=== PATIENT | female | born 1950 | race American Indian/Alaskan Native ===

== ENCOUNTER 2021-10-15 23:28 | Inpatient (IN) | payer MEDICARE ==
[2021-10-15] MEDS ORDERED: dexAMETHasone 4 MG/ML VIAL IV NR (23:31)
--- NOTE | 2021-10-15 23:47 | XRay Report ---
CHEST 1 VIEW 10/15/2021 11:31 PM INDICATION / CLINICAL INFORMATION: Dyspnea. COMPARISON: None available. FINDINGS: SUPPORT DEVICES: None. HEART / MEDIASTINUM: The heart size is mildly enlarged with a left ventricular configuration. There i s prominence of the central pulmonary vessels. LUNGS / PLEURA: Interstitial lung markings are mildly increased, especially in the perihilar regions. There are a few En B lines in the left lower lung laterally. There is mild to moderate pleuropar enchymal disease in the right lower hemithorax with obscuration of the hemidiaphragm. No pneumothorax . ADDITIONAL FINDINGS: No significant additional findings. IMPRESSION: 1. Probable mild pulmonary vascular congestion/interstitial edema. 2. Mild/moderate confluent pleuroparenchymal opacity in the right lower hemithorax may be related to asymmetric edema, pneumonia or aspiration. Signer Name: Perfecto Wright MD Signed: 10/15/2021 11:43 PM Workstation Name: [id number]
[2021-10-16 00:02] LABS: Basophils # (Auto) 0.1 K/mm3 (0.0-0.1); Basophils % (Auto) 0.6 % (0.0-1.8); Eosinophils % (Auto) 0.1 % (0.0-4.3); Hematocrit 38.5 % (30.3-42.9); Hemoglobin 12.2 gm/dl (10.1-14.3); Lymphocytes # (Auto) 0.6 K/mm3 (1.2-5.4); Lymphocytes % (Auto) 4.6 % (13.4-35.0); Mean Corpuscular HGB Conc 32 % (30-34); Mean Corpuscular Volume 99 fl (79-97); Monocytes # (Auto) 1.2 K/mm3 (0.0-0.8); Monocytes % (Auto) 8.3 % (0.0-7.3); Platelet Count 254 K/mm3 (140-440); Red Blood Count 3.88 M/mm3 (3.65-5.03); Red Cell Distribution Width 15.4 % (13.2-15.2)
[2021-10-16 00:12] LABS: INR 1.05 (0.87-1.13)
[2021-10-16 00:13] LABS: ABG Base Excess -4.4 mmol/L (-2.0-3.0); ABG HCO3 22.4 mmol/L (20.0-26.0); ABG Methemoglobin 0.5 % (0.0-1.5); ABG PCO2 48.3 mm Hg; ABG PH 7.285 pH Units (7.350-7.450); ABG PO2 89.9 mm Hg (80.0-90.0)
[2021-10-16 00:25] LABS: Albumin 4.3 g/dL (3.9-5)
--- NOTE | 2021-10-16 01:16 | Emergency Department Report ---
ED Shortness of Breath HPI - General Chief Complaint: Dyspnea/Respdistress Stated Complaint: MELQUIADES Time Seen by Provider: 10/15/21 23:29 Source: EMS Mode of arrival: Stretcher Limitations: No Limitations - History of Present Illness Initial Comments: pt was brought in by EMS for SOB , history of COPD and HTN , recently diagnosed with Covid , fully vaccinated no fever , no chest pain , EMS found her with o2 sat in 60s , put her on face mask and her o2 here was 85 , Complaint: shortness of breath -: Gradual, days(s) Improves With: oxygen Worsens With: lying flat, exertion Known History Of: COPD - Related Data Home Oxygen Therapy: No ED Review of Systems ROS: Stated complaint: MELQUIADES Other details as noted in HPI Constitutional: denies: chills, fever Eyes: denies: eye pain, eye discharge, vision change ENT: denies: ear pain, throat pain Respiratory: denies: cough, shortness of breath, wheezing Cardiovascular: denies: chest pain, palpitations Endocrine: no symptoms reported Gastrointestinal: denies: abdominal pain, nausea, diarrhea Genitourinary: denies: urgency, dysuria, discharge Musculoskeletal: denies: back pain, joint swelling, arthralgia Skin: denies: rash, lesions Neurological: denies: headache, weakness, paresthesias Psychiatric: denies: anxiety, depression Hematological/Lymphatic: denies: easy bleeding, easy bruising ED Past Medical Hx - Past Medical History Previous Medical History?: Yes Hx Hypertension: Yes Hx COPD: Yes - Surgical History Past Surgical History?: No ED Physical Exam - General Limitations: No Limitations General appearance: alert, in distress - Head Head exam: Present: atraumatic, normocephalic - Eye Eye exam: Present: normal appearance - ENT ENT exam: Present: mucous membranes moist - Neck Neck exam: Present: normal inspection - Respiratory Respiratory exam: Present: wheezes, rales, decreased breath sounds. Absent: respiratory distress - Cardiovascular Cardiovascular Exam: Present: regular rate, normal rhythm. Absent: systolic murmur, diastolic murmur, rubs, gallop - GI/Abdominal GI/Abdominal exam: Present: soft, normal bowel sounds - Extremities Exam Extremities exam: Present: normal inspection - Back Exam Back exam: Present: normal inspection - Neurological Exam Neurological exam: Present: alert, oriented X3 - Psychiatric Psychiatric exam: Present: normal affect, normal mood - Skin Skin exam: Present: warm, dry, intact, normal color. Absent: rash ED Course Vital Signs 10/15/21 10/15/21 23:28 23:51 Pulse Rate 85 78 Respiratory 22 28 H Rate Blood Pressure 232/86 [Left] O2 Sat by Pulse 85 96 Oximetry - Reevaluation(s) Reevaluation #1: 10/16/21 01:13 started on bipap , duo neb given x ray shwoed possible edema lasix given , BP controlled will admit for respiratory failure and pulmonary edema ED Medical Decision Making - Lab Data Result diagrams: 10/15/21 23:43 10/15/21 23:43 - EKG Data -: EKG Interpreted by Me EKG shows normal: sinus rhythm Critical care attestation.: If time is entered above; I have spent that time in minutes in the direct care of this critically ill patient, excluding procedure time. ED Disposition Clinical Impression: SOB (shortness of breath), Respiratory failure, CHF (congestive heart failure), Pulmonary edema Disposition: ADMITTED INPATIENT Is pt being admited?: Yes Does the pt Need Aspirin: No Condition: Fair Instructions: Pulmonary Edema (ED)
[2021-10-16] MEDS: IPRATROPIUM/ALBUTEROL SULFATE 3 ML AMPUL.NEB IH NR ×2 (02:00→02:05)
[2021-10-16] MEDS: FUROSEMIDE 40 MG/4 ML INJ IV NR ×2 (02:28→06:45)
[2021-10-16] MEDS ORDERED: HYDROmorphone 1 MG/1 ML INJ IV PRN (03:40)
[2021-10-16] MEDS ORDERED: ALBUTEROL 2.5 MG/3 ML NEBU IH PRN (03:40)
[2021-10-16] MEDS ORDERED: ONDANSETRON 4 MG/2 ML INJ IV PRN (03:40)
[2021-10-16] MEDS ORDERED: MORPHINE 2 MG/1 ML INJ IV PRN (03:40)
--- NOTE | 2021-10-16 03:49 | History and Physical Report ---
History of Present Illness Date of examination: 10/16/21 Date of admission: 10/16/21 Chief complaint: Shortness of breath History of present illness: 71 years old female with history of COPD and hypertension was brought to the emergency room because of progressive shortness of breath for last 1 to 2 days. Patient was found to had O2 sat in the 60s. Patient recently diagnosed with Covid , fully vaccinated no fever , no chest pain , EMS found her with o2 sat in 60s , put her on face mask and her o2 here was 85 , In the emergency room patient WBC was 13.9, BNP was 9[address]9. Chest x-ray shows probable mild pulmonary vascular congestion/interstitial edema. Mild/moderate confluent pleural parenchymal opacity in the right lower hemithorax may be related to asymmetric edema, pneumonia or aspiration So going to admit the patient we will put the patient on antibiotic, will IV Lasix will consult in cardiology for evaluation Past History Past Medical History: COPD, hypertension Medications and Allergies Allergies Allergy/AdvReac Type Severity Reaction Status Date / Time No Known Allergies Allergy Verified 10/16/21 01:47 Review of Systems All systems: negative Cardiovascular: orthopnea, edema, shortness of breath, dyspnea on exertion Respiratory: shortness of breath, dyspnea on exertion Exam - Constitutional Vitals: Temp Pulse Resp BP Pulse Ox 64 27 H 187/73 98 10/16/21 02:26 10/16/21 02:03 10/16/21 02:26 10/16/21 02:03 General appearance: Present: mild distress - EENT Eyes: Present: PERRL ENT: hearing intact, clear oral mucosa - Neck Neck: Present: supple, normal ROM - Respiratory Respiratory effort: normal Respiratory: bilateral: rales - Cardiovascular Heart Sounds: Present: S1 & S2. Absent: rub, click - Extremities Extremities: pulses symmetrical Extremity abnormal: edema Peripheral Pulses: within normal limits - Abdominal General gastrointestinal: Present: soft, non-tender, non-distended, normal bowel sounds Female genitourinary: Present: normal - Integumentary Integumentary: Present: clear, warm, dry - Musculoskeletal Musculoskeletal: gait normal, strength equal bilaterally - Psychiatric Psychiatric: appropriate mood/affect, intact judgment & insight - Neurologic Neurologic: CNII-XII intact, moves all extremities HEART Score - HEART Score Troponin: Troponin T < 0.010 ng/mL (0.00-0.029) 10/15/21 23:43 Results - Labs CBC & Chem 7: 10/15/21 23:43 10/15/21 23:43 Labs: Laboratory Last Values WBC 13.9 K/mm3 (4.5-11.0) H 10/15/21 23:43 RBC 3.88 M/mm3 (3.65-5.03) 10/15/21 23:43 Hgb 12.2 gm/dl (10.1-14.3) 10/15/21 23:43 Hct 38.5 % (30.3-42.9) 10/15/21 23:43 MCV 99 fl (79-97) H 10/15/21 23:43 MCH 31 pg (28-32) 10/15/21 23:43 MCHC 32 % (30-34) 10/15/21 23:43 RDW 15.4 % (13.2-15.2) H 10/15/21 23:43 Plt Count 254 K/mm3 (140-440) 10/15/21 23:43 Lymph % (Auto) 4.6 % (13.4-35.0) L 10/15/21 23:43 [place] % (Auto) 8.3 % (0.0-7.3) H 10/15/21 23:43 Eos % (Auto) 0.1 % (0.0-4.3) 10/15/21 23:43 Baso % (Auto) 0.6 % (0.0-1.8) 10/15/21 23:43 Lymph # (Auto) 0.6 K/mm3 (1.2-5.4) L 10/15/21 23:43 [place] # (Auto) 1.2 K/mm3 (0.0-0.8) H 10/15/21 23:43 Eos # (Auto) 0.0 K/mm3 (0.0-0.4) 10/15/21 23:43 Baso # (Auto) 0.1 K/mm3 (0.0-0.1) 10/15/21 23:43 Seg Neutrophils % 86.4 % (40.0-70.0) H 10/15/21 23:43 Seg Neutrophils # 12.0 K/mm3 (1.8-7.7) H 10/15/21 23:43 PT 14.8 Sec. (12.2-14.9) 10/15/21 23:43 INR 1.05 (0.87-1.13) 10/15/21 23:43 ABG pH 7.285 pH Units (7.350-7.450) L 10/16/21 00:04 ABG pCO2 48.3 mm Hg 10/16/21 00:04 ABG pO2 89.9 mm Hg (80.0-90.0) 10/16/21 00:04 ABG HCO3 22.4 mmol/L (20.0-26.0) 10/16/21 00:04 ABG O2 Saturation 96.0 % (95.0-99.0) 10/16/21 00:04 ABG O2 Content 15.7 (0.0-44) 10/16/21 00:04 ABG Base Excess -4.4 mmol/L (-2.0-3.0) L 10/16/21 00:04 ABG Hemoglobin 11.8 gm/dl (12.0-16.0) L 10/16/21 00:04 ABG Carboxyhemoglobin 1.4 % (0.0-5.0) 10/16/21 00:04 ABG Methemoglobin 0.5 % (0.0-1.5) 10/16/21 00:04 Oxyhemoglobin 94.2 % (95.0-99.0) L 10/16/21 00:04 FiO2 50 % 10/16/21 00:04 Sodium 132 mmol/L (137-145) L 10/15/21 23:43 Potassium 4.8 mmol/L (3.6-5.0) 10/15/21 23:43 Chloride 97.7 mmol/L (98-107) L 10/15/21 23:43 Carbon Dioxide 21 mmol/L (22-30) L 10/15/21 23:43 Anion Gap 18 mmol/L 10/15/21 23:43 BUN 22 mg/dL (7-17) H 10/15/21 23:43 Creatinine 1.3 mg/dL (0.6-1.2) H 10/15/21 23:43 Estimated GFR 40 ml/min 10/15/21 23:43 BUN/Creatinine Ratio 17 % 10/15/21 23:43 Glucose 151 mg/dL (65-100) H 10/15/21 23:43 Calcium 9.0 mg/dL (8.4-10.2) 10/15/21 23:43 Total Bilirubin 0.40 mg/dL (0.1-1.2) 10/15/21 23:43 AST 20 units/L (5-40) 10/15/21 23:43 ALT 28 units/L (7-56) 10/15/21 23:43 Alkaline Phosphatase 80 units/L (35-129) 10/15/21 23:43 Troponin T < 0.010 ng/mL (0.00-0.029) 10/15/21 23:43 NT-Pro-B Natriuret Pep 37242 pg/mL (0-900) H 10/15/21 23:43 Total Protein 7.0 g/dL (6.3-8.2) 10/15/21 23:43 Albumin 4.3 g/dL (3.9-5) 10/15/21 23:43 Albumin/Globulin Ratio 1.6 % 10/15/21 23:43 Lipase 18 units/L (13-60) 10/15/21 23:43 - Imaging and Cardiology Chest x-ray: report reviewed Assessment and Plan VTE prophylaxis?: Chemical Plan of care discussed with patient/family: Yes - Patient Problems (1) Acute congestive heart failure Current Visit: Yes Status: Acute Plan to address problem: Admit the patient to the [facility] overnight. Cardiac diet. Patient is on BiPAP. DuoNeb by nebulizer every 4 hours. Lasix 40 mg IV every 12 hours. Echocardiogram. Cardiology evaluation. Fluid restriction. Maintain input output. Daily weight (2) Acute respiratory failure Current Visit: Yes Status: Acute Plan to address problem: Cardiac diet. Patient is on BiPAP. DuoNeb by nebulizer every 4 hours. Consult pulmonary if needed (3) COPD (chronic obstructive pulmonary disease) Current Visit: Yes Status: Acute Plan to address problem: Patient is on BiPAP. DuoNeb by nebulizer every 4 hours . Albuterol via nebulizer every 4 hours as needed. We continue the home medication (4) Hypertension Current Visit: Yes Status: Acute Plan to address problem: Hydralazine 10 mg IV every 6 hours as needed. We will continue the home medication. We will monitor the patient closely (5) SOB (shortness of breath) Current Visit: Yes Status: Acute Plan to address problem: Patient is on BiPAP. DuoNeb by nebulizer every 4 hours . Albuterol via nebulizer every 4 hours as needed. We continue the home medication (6) Pneumonia Current Visit: Yes Status: Acute Plan to address problem: Patient is on BiPAP. Oxygen via nasal cannula 3 L/min. Levaquin 750 mg p.o. daily. We do the blood culture sputum culture. Patient is fully vaccinated against Covid. Follow-up Covid inflammatory marker (7) DVT prophylaxis Current Visit: Yes Status: Acute Plan to address problem: Heparin 5000 units subcu every 12 hours for DVT prophylaxis. Pepcid 20 mg p.o. twice daily for GI prophylaxis. Patient is a full code
[2021-10-16] MEDS: FUROSEMIDE 40 MG/4 ML INJ IV SCH ×2 (07:20→22:34)
--- NOTE | 2021-10-16 07:58 | Progress Note ---
Assessment and Plan Assessment and plan: History of present illness: 71 years old female with history of COPD and hypertension was brought to the emergency room because of progressive shortness of breath for last 1 to 2 days. Patient was found to had O2 sat in the 60s. Patient recently diagnosed with Covid , fully vaccinated no fever , no chest pain , EMS found her with o2 sat in 60s , put her on face mask and her o2 here was 85 , In the emergency room patient WBC was 13.9, [place] [address]36. Chest x-ray shows probable mild pulmonary vascular congestion/interstitial edema. Mild/moderate confluent pleural parenchymal opacity in the right lower hemithorax may be related to asymmetric edema, pneumonia or aspiration So going to admit the patient we will put the patient on antibiotic, will IV Lasix will consult in cardiology for evaluation Hospital Course: 10/16/2021: Remains on BIPAP mask. Lower extremity edema and rales noted on exam. Will continue diuresis. ECHO findings noted as well as cardio recs. Pulmonology consulted for assistance with BIPAP. Discussed with patient who would like to remain full code. She requested I not update family about medical status when I asked who I could call. Assessment and Plan: #Acute Hypoxic respiratory failure - etiology likely decompensated heart failure - currently on BIPAP, abg shows respiratory acidosis. - will attempt to wean as sats tolerate. - pulmonology consulted. #Acute Decompensated heart failure - concern for decompensated heart failure given lower extremity edema and interstitial - BNP 40796 - CXR shows pulmonary edema - ECHO fdinings as below - cardiology consulted - Lasix 40 mg IV bid. #HFrEF - 40-45% on echo - mild concentric hypertrophey - diuresis as above - will need GDMT optimization #Sepsis POA - wbc: 13K - CXR shows patchy infiltrate RLL field - COVID pcr sent' - bcx, scx - abx: levaquin #Right lower lobe Pneumonia - patchy opacity in RLL field, could represent PNA. - RT PCR sent for COVID - Bcx, scx - currently on levaquin # Acute kidney injury vs Chronic Kidney disease - Cr: 1.3, baseline unclear no reported hx - will trend on bmp - renally adjust meds #Essential hypertension - reports being on 4 Anti-HTN meds - will need medication reconciliation - Labetalol 10 mg IV q4hr prn #Advance care planning Disease education conducted, care plan discussed, diagnoses discussed, prognosis discussed, patient is full code, patient acknowledges understanding and agree with care plan, +30 minutes. The high probability of a clinically significant, sudden or life threatening deterioration of the [pulmonary, cardiac] system(s) required my full and direct attention, intervention and personal management. The aggregate critical care time was [60] minutes. This time is in addition to time spent performing reported procedures but includes the following: [x] Data Review and interpretation [x] Patient assessment and monitoring of vital signs [x] Documentation [x] Medication orders and management History Interval history: Resting comfortably. BIPAP in place on my encounter. Patient states that her breathing has improved. She states that her granddaughter recently tested positi ve for covid. Patient has only recieved two doses of the moderna vaccine. Her only medical problem is hypertension for which she states she takes four medications but could not recall them. D/w with [facility] R[facility] who will call to verify meds. I discussed advanced directives with the patient should the patient worsen she states that she would like to remain a full code. Hospitalist Physical - Physical exam Narrative exam: Physical Exam: VITAL SIGNS: Reviewed. GENERAL: The patient appears normally developed, Vital signs as documented. elderly woman appears stated age. on bipap mask HEAD: No signs of head trauma. EYES: Pupils are equal. Extraocular motions intact. EARS: Hearing grossly intact. MOUTH: Oropharynx is normal. NECK: No adenopathy, no JVD. CHEST: bilateral rales CARDIAC: Regular rate and rhythm. S1 and S2, without murmurs, gallops, or rubs. VASCULAR: bilateral 1-2+ LE edema. Peripheral pulses normal and equal in all extremities. ABDOMEN: Soft, non tender and non distended. No rebound or guarding, and no masses palpated. Bowel Sounds normal. MUSCULOSKELETAL: Good range of motion of all major joints. Extremities without clubbing, cyanosis or edema. NEUROLOGIC EXAM: Alert and oriented x 4. no focal sensory or strength deficits. PSYCHIATRIC: Mood normal. SKIN: detail exam as documented in skin assessment - Constitutional Vitals: Temp Pulse Resp BP Pulse Ox 57 L 20 137/61 100 10/16/21 06:31 10/16/21 06:31 10/16/21 06:31 10/16/21 06:31 General appearance: Present: mild distress HEART Score - HEART Score Troponin: Troponin T < 0.010 ng/mL (0.00-0.029) 10/15/21 23:43 Results - Labs CBC & Chem 7: 10/15/21 23:43 10/15/21 23:43 Labs: Laboratory Last Values WBC 13.9 K/mm3 (4.5-11.0) H 10/15/21 23:43 RBC 3.88 M/mm3 (3.65-5.03) 10/15/21 23:43 Hgb 12.2 gm/dl (10.1-14.3) 10/15/21 23:43 Hct 38.5 % (30.3-42.9) 10/15/21 23:43 MCV 99 fl (79-97) H 10/15/21 23:43 MCH 31 pg (28-32) 10/15/21 23:43 MCHC 32 % (30-34) 10/15/21 23:43 RDW 15.4 % (13.2-15.2) H 10/15/21 23:43 Plt Count 254 K/mm3 (140-440) 10/15/21 23:43 Lymph % (Auto) 4.6 % (13.4-35.0) L 10/15/21 23:43 [place] % (Auto) 8.3 % (0.0-7.3) H 10/15/21 23:43 Eos % (Auto) 0.1 % (0.0-4.3) 10/15/21 23:43 Baso % (Auto) 0.6 % (0.0-1.8) 10/15/21 23:43 Lymph # (Auto) 0.6 K/mm3 (1.2-5.4) L 10/15/21 23:43 [place] # (Auto) 1.2 K/mm3 (0.0-0.8) H 10/15/21 23:43 Eos # (Auto) 0.0 K/mm3 (0.0-0.4) 10/15/21 23:43 Baso # (Auto) 0.1 K/mm3 (0.0-0.1) 10/15/21 23:43 Seg Neutrophils % 86.4 % (40.0-70.0) H 10/15/21 23:43 Seg Neutrophils # 12.0 K/mm3 (1.8-7.7) H 10/15/21 23:43 PT 14.8 Sec. (12.2-14.9) 10/15/21 23:43 INR 1.05 (0.87-1.13) 10/15/21 23:43 ABG pH 7.285 pH Units (7.350-7.450) L 10/16/21 00:04 ABG pCO2 48.3 mm Hg 10/16/21 00:04 ABG pO2 89.9 mm Hg (80.0-90.0) 10/16/21 00:04 ABG HCO3 22.4 mmol/L (20.0-26.0) 10/16/21 00:04 ABG O2 Saturation 96.0 % (95.0-99.0) 10/16/21 00:04 ABG O2 Content 15.7 (0.0-44) 10/16/21 00:04 ABG Base Excess -4.4 mmol/L (-2.0-3.0) L 10/16/21 00:04 ABG Hemoglobin 11.8 gm/dl (12.0-16.0) L 10/16/21 00:04 ABG Carboxyhemoglobin 1.4 % (0.0-5.0) 10/16/21 00:04 ABG Methemoglobin 0.5 % (0.0-1.5) 10/16/21 00:04 Oxyhemoglobin 94.2 % (95.0-99.0) L 10/16/21 00:04 FiO2 50 % 10/16/21 00:04 Sodium 132 mmol/L (137-145) L 10/15/21 23:43 Potassium 4.8 mmol/L (3.6-5.0) 10/15/21 23:43 Chloride 97.7 mmol/L (98-107) L 10/15/21 23:43 Carbon Dioxide 21 mmol/L (22-30) L 10/15/21 23:43 Anion Gap 18 mmol/L 10/15/21 23:43 BUN 22 mg/dL (7-17) H 10/15/21 23:43 Creatinine 1.3 mg/dL (0.6-1.2) H 10/15/21 23:43 Estimated GFR 40 ml/min 10/15/21 23:43 BUN/Creatinine Ratio 17 % 10/15/21 23:43 Glucose 151 mg/dL (65-100) H 10/15/21 23:43 Calcium 9.0 mg/dL (8.4-10.2) 10/15/21 23:43 Total Bilirubin 0.40 mg/dL (0.1-1.2) 10/15/21 23:43 AST 20 units/L (5-40) 10/15/21 23:43 ALT 28 units/L (7-56) 10/15/21 23:43 Alkaline Phosphatase 80 units/L (35-129) 10/15/21 23:43 Troponin T < 0.010 ng/mL (0.00-0.029) 10/15/21 23:43 NT-Pro-B Natriuret Pep 69939 pg/mL (0-900) H 10/15/21 23:43 Total Protein 7.0 g/dL (6.3-8.2) 10/15/21 23:43 Albumin 4.3 g/dL (3.9-5) 10/15/21 23:43 Albumin/Globulin Ratio 1.6 % 10/15/21 23:43 Lipase 18 units/L (13-60) 10/15/21 23:43 Active Medications - Current Medications Current Medications: Generic Name Dose Route Start Last Admin Trade Name Freq PRN Reason Stop Dose Admin Acetaminophen 650 mg 10/16/21 03:40 Acetaminophen 325 Mg Tab PO Q4H PRN Pain MILD(1-3)/Fever >100.5/PEREZ Albuterol 2.5 mg 10/16/21 03:40 Albuterol 2.5 Mg/3 Ml Nebu IH Q3HRT PRN Shortness Of Breath Albuterol/Ipratropium 1 ampul 10/16/21 08:00 Ipratropium/Albuterol Sulfate 3 Ml Ampul.Neb IH Q6HRT ANA Famotidine 10 mg 10/16/21 10:00 Famotidine 10 Mg Tab PO BID ANA Furosemide 40 mg 10/16/21 06:00 10/16/21 07:20 Furosemide 40 Mg/4 Ml Inj IV 40 mg BID@0600,1800 ANA Administration Heparin Sodium (Porcine) 5,000 unit 10/16/21 10:00 Heparin 5,000 Unit/1 Ml Vial SUB-Q Q12HR [facility] Hydromorphone HCl 0.5 mg 10/16/21 03:40 Hydromorphone 1 Mg/1 Ml Inj IV Q3H PRN Pain , Severe (7-10) Levofloxacin 750 mg 10/16/21 10:00 Levofloxacin 750 Mg Tab PO Q48HR [facility] Protocol Morphine Sulfate 2 mg 10/16/21 03:40 Morphine 2 Mg/1 Ml Inj IV Q4H PRN Pain, Moderate (4-6) Ondansetron HCl 4 mg 10/16/21 03:40 Ondansetron 4 Mg/2 Ml Inj IV Q8H PRN Nausea And Vomiting Sodium Chloride 10 ml 10/16/21 10:00 Sodium Chloride 0.9% 10 Ml Flush Syringe IV BID [facility] Sodium Chloride 10 ml 10/16/21 03:40 Sodium Chloride 0.9% 10 Ml Flush Syringe IV PRN PRN LINE FLUSH
[2021-10-16] MEDS: levoFLOXacin 750 MG TAB PO SCH (09:55)
[2021-10-16] MEDS: FAMOTIDINE 10 MG TAB PO SCH ×2 (09:55→22:34)
[2021-10-16] MEDS: HEPARIN 5,000 UNIT/1 ML VIAL SUB-Q SCH ×2 (09:55→22:34)
[2021-10-16] MEDS ORDERED: levoFLOXacin 750 MG TAB PO SCH (10:00)
[2021-10-16] MEDS ORDERED: FAMOTIDINE 20 MG TAB PO SCH (10:00)
[2021-10-16 10:38] LABS: Bilirubin,Urine NEG (Negative); Blood,Urine NEG (Negative); Color,Urine Straw (Yellow); Protein,Urine <15 mg/dL mg/dL (Negative); RBC,Urine < 1.0 /HPF (0.0-6.0); Urobilinogen,Urine < 2.0 mg/dL (<2.0)
--- NOTE | 2021-10-16 11:47 | Consultation ---
History of Present Illness Consult date: 10/16/21 Consult reason: congestive heart failure History of present illness: 71-year-old female presenting with shortness of breath. Denies any chest pain or prior history of heart disease she is currently being worked up for COVID-19 infection. Past History Past Medical History: COPD, hypertension Past Surgical History: denies: No surgical history Social history: denies: no significant social history Medications and Allergies Allergies Allergy/AdvReac Type Severity Reaction Status Date / Time No Known Allergies Allergy Verified 10/16/21 01:47 Home Medications Medication Instructions Recorded Confirmed Last Taken Type Albuterol Sulfate [Proventil Hfa] 6.7 gm IH Q4H PRN 10/16/21 10/16/21 10/16/21 10:09 History Hydralazine HCl 50 mg PO BID 10/16/21 10/16/21 10/15/21 09:00 History NIFEdipine [Nifedipine ER] 90 mg PO QDAY 10/16/21 10/16/21 10/15/21 09:00 History atenoloL [Tenormin] 50 mg PO BID 10/16/21 10/16/21 10/15/21 09:00 History lisinopriL [Zestril TAB] 40 mg PO QDAY 10/16/21 10/16/21 10/15/21 09:00 History Active Meds: Active Medications Acetaminophen (Acetaminophen 325 Mg Tab) 650 mg PO Q4H PRN PRN Reason: Pain MILD(1-3)/Fever >100.5/PEREZ Albuterol (Albuterol 2.5 Mg/3 Ml Nebu) 2.5 mg IH Q3HRT PRN PRN Reason: Shortness Of Breath Albuterol/Ipratropium (Ipratropium/Albuterol Sulfate 3 Ml Ampul.Neb) 1 ampul IH Q6HRT ANA Famotidine (Famotidine 10 Mg Tab) 10 mg PO BID ANA Furosemide (Furosemide 40 Mg/4 Ml Inj) 40 mg IV BID@0600,1800 [facility] Last Admin: 10/16/21 07:20 Dose: 40 mg Heparin Sodium (Porcine) (Heparin 5,000 Unit/1 Ml Vial) 5,000 unit SUB-Q Q12HR [facility] Last Admin: 10/16/21 09:55 Dose: 5,000 unit Hydromorphone HCl (Hydromorphone 1 Mg/1 Ml Inj) 0.5 mg IV Q3H PRN PRN Reason: Pain , Severe (7-10) Levofloxacin (Levofloxacin 750 Mg Tab) 750 mg PO Q48HR [facility]; Protocol Last Admin: 10/16/21 09:55 Dose: 750 mg Morphine Sulfate (Morphine 2 Mg/1 Ml Inj) 2 mg IV Q4H PRN PRN Reason: Pain, Moderate (4-6) Ondansetron HCl (Ondansetron 4 Mg/2 Ml Inj) 4 mg IV Q8H PRN PRN Reason: Nausea And Vomiting Sodium Chloride (Sodium Chloride 0.9% 10 Ml Flush Syringe) 10 ml IV BID [facility] Sodium Chloride (Sodium Chloride 0.9% 10 Ml Flush Syringe) 10 ml IV PRN PRN PRN Reason: LINE FLUSH Review of Systems Constitutional: fever, sweats, fatigue, no weight loss, no weight gain Ears, nose, mouth and throat: no deferred, no ear pain, no ear discharge, no tinnitis Cardiovascular: no chest pain, no orthopnea, no palpitations, no rapid/irregular heart beat, no edema, no syncope Respiratory: shortness of breath, dyspnea on exertion Gastrointestinal: no abdominal pain, no nausea, no vomiting, no diarrhea Genitourinary Female: no pelvic pain, no flank pain, no menorrhagia, no dysuria Musculoskeletal: no neck stiffness, no neck pain, no low back pain, no shooting leg pain Integumentary: no rash, no pruritis, no redness, no sores Neurological: no head injury, no transient paralysis, no weakness, no parathesias, no numbness Psychiatric: no anxiety, no memory loss, no sleep disturbances Endocrine: no cold intolerance, no heat intolerance, no polyphagia, no polydipsia, no polyuria, no nocturia Hematologic/Lymphatic: no easy bruising, no easy bleeding Allergic/Immunologic: no urticaria, no allergic rhinitis, no wheezing Physical Examination Vital Signs Pulse Resp BP Pulse Ox 85 22 232/86 85 10/15/21 23:28 10/15/21 23:28 10/15/21 23:28 10/15/21 23:28 HEENT: Positive: PERRL, Normocephaly, Mucus Membranes Moist Neck: Positive: neck supple, trachea midline Cardiac: Positive: Reg Rate and Rhythm, S1/S2. Negative: Audible Murmur Lungs: Positive: Rhonchi. Negative: Rales, Wheezes Neuro: Positive: Grossly Intact Abdomen: Positive: Unremarkable, Soft Extremities: Absent: edema Results 10/15/21 23:43 10/15/21 23:43 Cardiac Enzymes 10/15/21 Range/Units 23:43 AST 20 (5-40) units/L Coagulation 10/15/21 Range/Units 23:43 PT 14.8 (12.2-14.9) Sec. INR 1.05 (0.87-1.13) CBC 10/15/21 Range/Units 23:43 WBC 13.9 H (4.5-11.0) K/mm3 RBC 3.88 (3.65-5.03) M/mm3 Hgb 12.2 (10.1-14.3) gm/dl Hct 38.5 (30.3-42.9) % Plt Count 254 (140-440) K/mm3 Lymph # (Auto) 0.6 L (1.2-5.4) K/mm3 [place] # (Auto) 1.2 H (0.0-0.8) K/mm3 Eos # (Auto) 0.0 (0.0-0.4) K/mm3 Baso # (Auto) 0.1 (0.0-0.1) K/mm3 Comprehensive Metabolic Panel 10/15/21 Range/Units 23:43 Sodium 132 L (137-145) mmol/L Potassium 4.8 (3.6-5.0) mmol/L Chloride 97.7 L (98-107) mmol/L Carbon Dioxide 21 L (22-30) mmol/L BUN 22 H (7-17) mg/dL Creatinine 1.3 H (0.6-1.2) mg/dL Glucose 151 H (65-100) mg/dL Calcium 9.0 (8.4-10.2) mg/dL AST 20 (5-40) units/L ALT 28 (7-56) units/L Alkaline Phosphatase 80 (35-129) units/L Total Protein 7.0 (6.3-8.2) g/dL Albumin 4.3 (3.9-5) g/dL EKG interpretations - Telemetry EKG Rhythm: Sinus Rhythm Assessment and Plan 1. Shortness of breath and dyspnea with acute arterial desaturation rule out Covid 19 infection 2. Chronic obstructive pulmonary disease 3. Essential hypertension 4. Abnormal chest x-ray showing small to moderate size right pleural effusion. 5. Renal insufficiency Plan. Patient is currently stable BNP is significantly elevated we will obtain echocardiogram to assess left ventricular size as well as right ventricular size and function. Continue present management
[2021-10-16] MEDS: IPRATROPIUM/ALBUTEROL SULFATE 3 ML AMPUL.NEB IH SCH ×2 (19:12→19:13)
[2021-10-16] MEDS ORDERED: ALBUTEROL 8.5 GM MDI INHALATION IH PRN (20:35)
--- NOTE | 2021-10-16 23:11 | Consultation ---
History of Present Illness Consult date: 10/16/21 Requesting physician: GERBER ROMERO Reason for consult: hypoxemia, other (Continuous bipap) History of present illness: 71 y/o female with COPD, admitted with acute respiratory failure. Found to have BNP of >23K. CXR shows pulmonary edema and right sided pleural effusion. Echo shows an EF of 45% with mild Pulmonary HTN. Patient was in significant respiratory distress so required bipap but has now been weaned to 3 liters NC with good sats. pulmonary consulted for help with bipap weaning. Past History Past Medical History: COPD, hypertension Past Surgical History: denies: No surgical history Social history: denies: no significant social history Medications and Allergies Allergies Allergy/AdvReac Type Severity Reaction Status Date / Time No Known Allergies Allergy Verified 10/16/21 01:47 Home Medications Medication Instructions Recorded Confirmed Last Taken Type Albuterol Sulfate [Proventil Hfa] 6.7 gm IH Q4H PRN 10/16/21 10/16/21 10/16/21 10:09 History Hydralazine HCl 50 mg PO BID 10/16/21 10/16/21 10/15/21 09:00 History NIFEdipine [Nifedipine ER] 90 mg PO QDAY 10/16/21 10/16/21 10/15/21 09:00 History atenoloL [Tenormin] 50 mg PO BID 10/16/21 10/16/21 10/15/21 09:00 History lisinopriL [Zestril TAB] 40 mg PO QDAY 10/16/21 10/16/21 10/15/21 09:00 History Active Meds: Active Medications Acetaminophen (Acetaminophen 325 Mg Tab) 650 mg PO Q4H PRN PRN Reason: Pain MILD(1-3)/Fever >100.5/PEREZ Albuterol (Albuterol 8.5 Gm Mdi Inhalation) 2 puff IH Q6HRT [facility] Famotidine (Famotidine 10 Mg Tab) 10 mg PO BID [facility] Last Admin: 10/16/21 22:34 Dose: 10 mg Furosemide (Furosemide 40 Mg/4 Ml Inj) 40 mg IV BID@0600,1800 [facility] Last Admin: 10/16/21 22:34 Dose: 40 mg Heparin Sodium (Porcine) (Heparin 5,000 Unit/1 Ml Vial) 5,000 unit SUB-Q Q12HR ANA Last Admin: 10/16/21 22:34 Dose: 5,000 unit Hydromorphone HCl (Hydromorphone 1 Mg/1 Ml Inj) 0.5 mg IV Q3H PRN PRN Reason: Pain , Severe (7-10) Levofloxacin (Levofloxacin 750 Mg Tab) 750 mg PO Q48HR [facility]; Protocol Last Admin: 10/16/21 09:55 Dose: 750 mg Morphine Sulfate (Morphine 2 Mg/1 Ml Inj) 2 mg IV Q4H PRN PRN Reason: Pain, Moderate (4-6) Ondansetron HCl (Ondansetron 4 Mg/2 Ml Inj) 4 mg IV Q8H PRN PRN Reason: Nausea And Vomiting Sodium Chloride (Sodium Chloride 0.9% 10 Ml Flush Syringe) 10 ml IV BID ANA Sodium Chloride (Sodium Chloride 0.9% 10 Ml Flush Syringe) 10 ml IV PRN PRN PRN Reason: LINE FLUSH Review of Systems All systems: negative Physical Examination Vital signs: Vital Signs Pulse Resp BP Pulse Ox 85 22 232/86 85 10/15/21 23:28 10/15/21 23:28 10/15/21 23:28 10/15/21 23:28 General appearance: no acute distress, asleep Eyes: non-icteric Neck: supple Ascultation: Bilateral: rales (right greater than left) Tactile fremitus: Right: diminished (base) Cardiovascular: regular rate and rhythm Results - Laboratory Findings CBC and BMP: 10/15/21 23:43 10/15/21 23:43 ABG ABG pH 7.285 pH Units (7.350-7.450) L 10/16/21 00:04 ABG pCO2 48.3 mm Hg 10/16/21 00:04 ABG pO2 89.9 mm Hg (80.0-90.0) 10/16/21 00:04 ABG O2 Saturation 96.0 % (95.0-99.0) 10/16/21 00:04 PT/INR, D-dimer PT 14.8 Sec. (12.2-14.9) 10/15/21 23:43 INR 1.05 (0.87-1.13) 10/15/21 23:43 Abnormal lab findings: Abnormal Labs 10/15/21 10/15/21 10/15/21 23:43 23:43 23:43 WBC 13.9 H MCV 99 H RDW 15.4 H Lymph % (Auto) 4.6 L [place] % (Auto) 8.3 H Lymph # (Auto) 0.6 L [place] # (Auto) 1.2 H Seg Neutrophils % 86.4 H Seg Neutrophils # 12.0 H ABG pH ABG Base Excess ABG Hemoglobin Oxyhemoglobin Sodium 132 L Chloride 97.7 L Carbon Dioxide 21 L BUN 22 H Creatinine 1.3 H Glucose 151 H NT-Pro-B Natriuret Pep 37437 H 10/16/21 00:04 WBC MCV RDW Lymph % (Auto) [place] % (Auto) Lymph # (Auto) [place] # (Auto) Seg Neutrophils % Seg Neutrophils # ABG pH 7.285 L ABG Base Excess -4.4 L ABG Hemoglobin 11.8 L Oxyhemoglobin 94.2 L Sodium Chloride Carbon Dioxide BUN Creatinine Glucose NT-Pro-B Natriuret Pep - Diagnostic Findings Chest x-ray: image reviewed Assessment and Plan 71 y/o female with acute respiratory failure secondary to volume overload from CHF exacerbation. 1. Weaned from bipap 2. should be assessed for central sleep apnea as an outpatient given systolic heart failure 3. Agree with no systemic steroids at present 4 Wean oxygen for sats >88% 5. Likely will need ambulatory pulse ox prior to discharge 6. Thank you for the consult, will continue to follow along with you.
[2021-10-17] MEDS: ACETAMINOPHEN 325 MG TAB PO PRN ×2 (00:41→15:05)
[2021-10-17] MEDS: hydrALAZINE 20 MG/1 ML INJ IV PRN ×2 (03:07→19:56)
--- NOTE | 2021-10-17 05:49 | XRay Report ---
CHEST 1 VIEW 10/17/2021 5:10 AM INDICATION / CLINICAL INFORMATION: COVID 19 pneumonia. COMPARISON: 10/15/21. FINDINGS: SUPPORT DEVICES: None. HEART / MEDIASTINUM: Mild cardiomegaly is stable. Pulmonary vascular congestion has improved. LUNGS / PLEURA: Interstitial edema has improved. Pleuroparenchymal opacity in the right lower hemitho rax also appears slightly less prominent. No pneumothorax. ADDITIONAL FINDINGS: No significant additional findings. IMPRESSION: Improving interstitial edema and right basilar pleuroparenchymal opacity. Signer Name: Perfecto Wright MD Signed: 10/17/2021 5:45 AM Workstation Name: [id number]
[2021-10-17] MEDS: FUROSEMIDE 40 MG/4 ML INJ IV SCH ×2 (06:22→18:02)
--- NOTE | 2021-10-17 08:14 | Progress Note ---
Assessment and Plan Assessment and plan: History of present illness: 71 years old female with history of COPD and hypertension was brought to the emergency room because of progressive shortness of breath for last 1 to 2 days. Patient was found to had O2 sat in the 60s. Patient recently diagnosed with Covid , fully vaccinated no fever , no chest pain , EMS found her with o2 sat in 60s , put her on face mask and her o2 here was 85 , In the emergency room patient WBC was 13.9, BNP [place] [address]. Chest x-ray shows probable mild pulmonary vascular congestion/interstitial edema. Mild/moderate confluent pleural parenchymal opacity in the right lower hemithorax may be related to asymmetric edema, pneumonia or aspiration So going to admit the patient we will put the patient on antibiotic, will IV Lasix will consult in cardiology for evaluation Hospital Course: 10/16/2021: Remains on BIPAP mask. Lower extremity edema and rales noted on exam. Will continue diuresis. ECHO findings noted as well as cardio recs. Pulmonology consulted for assistance with BIPAP. Discussed with patient who would like to remain full code. She requested I not update family about medical status when I asked who I could call. 10/17/2021: improvement clinically. On Nasal cannula 4L satting 94-95% on my encounter. CXR shows improvement in interstitial edeam. Urine output good. Slight inc in Cr but will continue diuresis one more day and can likely drop lasix dose tomorrow. Assessment and Plan: #Acute Hypoxic respiratory failure (improving) - etiology likely decompensated heart failure - currently on BIPAP, abg shows respiratory acidosis. - de-escalated to NC. - will attempt to wean as sats tolerate. - pulmonology consulted. #Acute Decompensated heart failure - concern for decompensated heart failure given lower extremity edema and interstitial - BNP 75520 - CXR shows pulmonary edema - ECHO fdinings as below - cardiology consulted - Lasix 40 mg IV bid. #HFrEF - 40-45% on echo - mild concentric hypertrophey - diuresis as above - on atenolol at home, will change to metoprolol. hold naida due to renal fx. #Sepsis POA - wbc: 13K - CXR shows patchy infiltrate RLL field - COVID pcr sent' - bcx, scx - abx: levaquin #Right lower lobe Pneumonia - patchy opacity in RLL field, could represent PNA. - RT PCR sent for COVID - Bcx, scx - currently on levaquin # Acute kidney injury due to vasomotor nephropathy - Cr: 1.3-->1.4 - will trend on bmp - renally adjust meds #Essential hypertension - reports being on 4 Anti-HTN meds - resume home hydralazine. hold lisinopril. - will change atenolol to metoprolol. - will need medication reconciliation - Labetalol 10 mg IV q4hr prn #Advance care planning Disease education conducted, care plan discussed, diagnoses discussed, prognosis discussed, patient is full code, patient acknowledges understanding and agree wi th care plan, +30 minutes. The high probability of a clinically significant, sudden or life threatening deterioration of the [pulmonary, cardiac] system(s) required my full and direct attention, intervention and personal management. The aggregate critical care time was [60] minutes. This time is in addition to time spent performing reported procedures but includes the following: [x] Data Review and interpretation [x] Patient assessment and monitoring of vital signs [x] Documentation [x] Medication orders and management History Interval history: Still undecided about code status as she brought this up in my conversation today. Does not want to commit so will remain full code. Has asked me to not notify family and that she will communicate with family. RN notified of my conversation. States that she is feeling better but has a poor appetitie. Frustrated her blood pressure is elevated but I explained to her we will resume her home meds and possibly initiated on new antihypertensives. Hospitalist Physical - Physical exam Narrative exam: Physical Exam: VITAL SIGNS: Reviewed. GENERAL: The patient appears normally developed, Vital signs as documented. elderly woman appears stated age. on nasal cannula HEAD: No signs of head trauma. EYES: Pupils are equal. Extraocular motions intact. EARS: Hearing grossly intact. MOUTH: Oropharynx is normal. NECK: No adenopathy, no JVD. CHEST: bilateral rales CARDIAC: Regular rate and rhythm. S1 and S2, without murmurs, gallops, or rubs. VASCULAR: bilateral 1-2+ LE edema. Peripheral pulses normal and equal in all extremities. ABDOMEN: Soft, non tender and non distended. No rebound or guarding, and no masses palpated. Bowel Sounds normal. MUSCULOSKELETAL: Good range of motion of all major joints. Extremities without clubbing, cyanosis or edema. NEUROLOGIC EXAM: Alert and oriented x 4. no focal sensory or strength deficits. PSYCHIATRIC: Mood normal. SKIN: detail exam as documented in skin assessment - Constitutional Vitals: Temp Pulse Resp BP Pulse Ox 97.9 F 61 22 181/85 97 10/17/21 08:00 10/17/21 04:00 10/17/21 04:00 10/17/21 03:07 10/17/21 07:45 General appearance: Present: mild distress HEART Score - HEART Score Troponin: Troponin T < 0.010 ng/mL (0.00-0.029) 10/15/21 23:43 Results - Labs CBC & Chem 7: 10/17/21 07:29 10/17/21 07:29 Labs: Laboratory Last Values WBC 13.9 K/mm3 (4.5-11.0) H 10/15/21 23:43 RBC 3.88 M/mm3 (3.65-5.03) 10/15/21 23:43 Hgb 12.2 gm/dl (10.1-14.3) 10/15/21 23:43 Hct 38.5 % (30.3-42.9) 10/15/21 23:43 MCV 99 fl (79-97) H 10/15/21 23:43 MCH 31 pg (28-32) 10/15/21 23:43 MCHC 32 % (30-34) 10/15/21 23:43 RDW 15.4 % (13.2-15.2) H 10/15/21 23:43 Plt Count 254 K/mm3 (140-440) 10/15/21 23:43 Lymph % (Auto) 4.6 % (13.4-35.0) L 10/15/21 23:43 [place] % (Auto) 8.3 % (0.0-7.3) H 10/15/21 23:43 Eos % (Auto) 0.1 % (0.0-4.3) 10/15/21 23:43 Baso % (Auto) 0.6 % (0.0-1.8) 10/15/21 23:43 Lymph # (Auto) 0.6 K/mm3 (1.2-5.4) L 10/15/21 23:43 [place] # (Auto) 1.2 K/mm3 (0.0-0.8) H 10/15/21 23:43 Eos # (Auto) 0.0 K/mm3 (0.0-0.4) 10/15/21 23:43 Baso # (Auto) 0.1 K/mm3 (0.0-0.1) 10/15/21 23:43 Seg Neutrophils % 86.4 % (40.0-70.0) H 10/15/21 23:43 Seg Neutrophils # 12.0 K/mm3 (1.8-7.7) H 10/15/21 23:43 PT 14.8 Sec. (12.2-14.9) 10/15/21 23:43 INR 1.05 (0.87-1.13) 10/15/21:43 ABG pH 7.285 pH Units (7.350-7.450) L 10/16/21 00:04 ABG pCO2 48.3 mm Hg 10/16/21 00:04 ABG pO2 89.9 mm Hg (80.0-90.0) 10/16/21 00:04 ABG HCO3 22.4 mmol/L (20.0-26.0) 10/16/21 00:04 ABG O2 Saturation 96.0 % (95.0-99.0) 10/16/21 00:04 ABG O2 Content 15.7 (0.0-44) 10/16/21 00:04 ABG Base Excess -4.4 mmol/L (-2.0-3.0) L 10/16/21 00:04 ABG Hemoglobin 11.8 gm/dl (12.0-16.0) L 10/16/21 00:04 ABG Carboxyhemoglobin 1.4 % (0.0-5.0) 10/16/21 00:04 ABG Methemoglobin 0.5 % (0.0-1.5) 10/16/21 00:04 Oxyhemoglobin 94.2 % (95.0-99.0) L 10/16/21 00:04 FiO2 50 % 10/16/21 00:04 Sodium 132 mmol/L (137-145) L 10/15/21 23:43 Potassium 4.8 mmol/L (3.6-5.0) 10/15/21 23:43 Chloride 97.7 mmol/L (98-107) L 10/15/21 23:43 Carbon Dioxide 21 mmol/L (22-30) L 10/15/21 23:43 Anion Gap 18 mmol/L 10/15/21 23:43 BUN 22 mg/dL (7-17) H 10/15/21 23:43 Creatinine 1.3 mg/dL (0.6-1.2) H 10/15/21 23:43 Estimated GFR 40 ml/min 10/15/21 23:43 BUN/Creatinine Ratio 17 % 10/15/21 23:43 Glucose 151 mg/dL (65-100) H 10/15/21 23:43 Calcium 9.0 mg/dL (8.4-10.2) 10/15/21 23:43 Total Bilirubin 0.40 mg/dL (0.1-1.2) 10/15/21 23:43 AST 20 units/L (5-40) 10/15/21 23:43 ALT 28 units/L (7-56) 10/15/21 23:43 Alkaline Phosphatase 80 units/L (35-129) 10/15/21 23:43 Troponin T < 0.010 ng/mL (0.00-0.029) 10/15/21 23:43 NT-Pro-B Natriuret Pep 64192 pg/mL (0-900) H 10/15/21 23:43 Total Protein 7.0 g/dL (6.3-8.2) 10/15/21 23:43 Albumin 4.3 g/dL (3.9-5) 10/15/21 23:43 Albumin/Globulin Ratio 1.6 % 10/15/21 23:43 Lipase 18 units/L (13-60) 10/15/21 23:43 Urine Color Straw (Yellow) 10/16/21 Unknown Urine Turbidity Clear (Clear) 10/16/21 Unknown Urine pH 5.0 (5.0-7.0) 10/16/21 Unknown Ur Specific [place] 1.005 (1.003-1.030) 10/16/21 Unknown Urine Protein <15 mg/dl mg/dL (Negative) 10/16/21 Unknown Urine Glucose (UA) Neg mg/dL (Negative) 10/16/21 Unknown Urine Ketones Neg mg/dL (Negative) 10/16/21 Unknown Urine Blood Neg (Negative) 10/16/21 Unknown Urine Nitrite Neg (Negative) 10/16/21 Unknown Urine Bilirubin Neg (Negative) 10/16/21 Unknown Urine Urobilinogen < 2.0 mg/dL (<2.0) 10/16/21 Unknown Ur Leukocyte Esterase Neg (Negative) 10/16/21 Unknown Urine WBC (Auto) 0.0 /HPF (0.0-6.0) 10/16/21 Unknown Urine RBC (Auto) < 1.0 /HPF (0.0-6.0) 10/16/21 Unknown Bajwa/IV: Voiding Method External Female Catheter Active Medications - Current Medications Current Medications: Generic Name Dose Route Start Last Admin Trade Name Freq PRN Reason Stop Dose Admin Acetaminophen 650 mg 10/16/21 03:40 10/17/21 00:41 Acetaminophen 325 Mg Tab PO 650 mg Q4H PRN Administration Pain MILD(1-3)/Fever >100.5/PEREZ Albuterol 2 puff 10/17/21 02:00 Albuterol 8.5 Gm Mdi Inhalation IH Q6HRT ANA Famotidine 10 mg 10/16/21 10:00 10/16/21 22:34 Famotidine 10 Mg Tab PO 10 mg BID ANA Administration Furosemide 40 mg 10/16/21 06:00 10/17/21 06:22 Furosemide 40 Mg/4 Ml Inj IV 40 mg BID@0600,1800 ANA Administration Heparin Sodium (Porcine) 5,000 unit 10/16/21 10:00 10/16/21 22:34 Heparin 5,000 Unit/1 Ml Vial SUB-Q 5,000 unit Q12HR ANA Administration Hydralazine HCl 10 mg 10/17/21 02:38 10/17/21 03:07 Hydralazine 20 Mg/1 Ml Inj IV 10 mg Q6HR PRN Administration Hypertension Hydromorphone HCl 0.5 mg 10/16/21 03:40 Hydromorphone 1 Mg/1 Ml Inj IV Q3H PRN Pain , Severe (7-10) Levofloxacin 750 mg 10/16/21 10:00 10/16/21 09:55 Levofloxacin 750 Mg Tab PO 750 mg Q48HR ANA Administration Protocol Morphine Sulfate 2 mg 10/16/21 03:40 Morphine 2 Mg/1 Ml Inj IV Q4H PRN Pain, Moderate (4-6) Ondansetron HCl 4 mg 10/16/21 03:40 Ondansetron 4 Mg/2 Ml Inj IV Q8H PRN Nausea And Vomiting Sodium Chloride 10 ml 10/16/21 10:00 Sodium Chloride 0.9% 10 Ml Flush Syringe IV BID ANA Sodium Chloride 10 ml 10/16/21 03:40 Sodium Chloride 0.9% 10 Ml Flush Syringe IV PRN PRN LINE FLUSH Nutrition/Malnutrition Assess - Dietary Evaluation Nutrition/Malnutrition Findings: Nutrition Notes Start: 10/16/21 12:16 Freq: Status: Active Protocol: Document 10/16/21 12:16 CW (Rec: 10/16/21 12:24 CW [id number]) Nutrition Notes Need for Assessment generated from: [facility] Initial or Follow up Assessment Current Diagnosis COPD,Hypertension,Heart Failure,Respiratory Failure Other Pertinent Diagnosis SOB, PE, pneu, covid PUI Current Diet Cardiac Labs/Tests Na 132 BUN 22 Cr 1.3 BG 151 Pertinent Medications Lasix Height 5 ft 8 in Weight 63.503 kg [place] Body Weight (kg) 63.63 BMI 21.2 Weight change and time frame weight increase likely related to fluid shifts Weight Status Underweight Subjective/Other Information Screen for skin risk. Keanu score of 17. Pt on contact rpecautions. Pt unavailable by phone. RN unavailable x 2. No intakes recorded. Will monitor for stable intakes and need for ONS. Burn Absent Trauma Absent GI Symptoms None Food Allergy No Skin Integrity/Comment Intact Minimum of two criteria Yes Fluid Accumulation Moderate to Severe (severe) Reduced Ore Smelter Strength Measurably Reduced (severe) #1 Nutrition Diagnosis Malnutrition Comments: mild Etiology 2+ edema and bilateral weak maintenance worker strength Is patient on ventilator? No Is Patient Ambulatory and/or Out of Bed No REE-([facility]-confined to bed) 1161.527 Calculation Used for Recommendations [facility] Additional Notes protein needs: 64 - 76g (1 - 1 .2g/kgBW) fluid needs: 1 ml/kcal or per MD order Nutrition Intervention Change Diet Order: Continue diet as ordered Goal #1 Meet at least 80% of EER Anticipated Discharge Needs: Cardiac Diet Follow-Up By: 10/20/21 Additional Comments F/U for stable intakes, ONS need
[2021-10-17 08:18] LABS: Calcium 9.3 mg/dL (8.4-10.2)
--- NOTE | 2021-10-17 09:08 | Electrocardiograph Report ---
[facility] Test Date: 2021-10-16 Test Time: 10:36:27 Pat Name: ANTELMO THORNTON Department: Room: A266 1 Gender: F Midwife: FOSTER : 1950 Requested By: SHANNON VALERIO Order Number: [id number] Reading MD: Shira Kirby Measurements Intervals [place] Rate: 54 P: 71 NH: 149 QRS: -19 QRSD: 103 T: 123 QT: 522 QTc: 495 Interpretive Statements Sinus rhythm Probable left atrial enlargement Left ventricular hypertrophy Nonspecific T abnormalities, lateral leads No previous ECG available for comparison Electronically Signed On 10-17-2021 9:07:58 EST by Sihra Kirby
[2021-10-17] MEDS: HEPARIN 5,000 UNIT/1 ML VIAL SUB-Q SCH ×2 (09:50→23:04)
[2021-10-17] MEDS: FAMOTIDINE 10 MG TAB PO SCH ×2 (09:50→23:03)
[2021-10-17 10:27] LABS: Basophils % (Auto) 0.3 % (0.0-1.8); Eosinophils % (Auto) 0.2 % (0.0-4.3); Hematocrit 40.5 % (30.3-42.9); Hemoglobin 13.1 gm/dl (10.1-14.3); Lymphocytes # (Auto) 0.8 K/mm3 (1.2-5.4); Mean Corpuscular HGB Conc 32 % (30-34); Mean Corpuscular Volume 99 fl (79-97); Monocytes # (Auto) 0.8 K/mm3 (0.0-0.8); Monocytes % (Auto) 14.2 % (0.0-7.3); Platelet Count 217 K/mm3 (140-440); Red Blood Count 4.09 M/mm3 (3.65-5.03); Red Cell Distribution Width 14.5 % (13.2-15.2)
[2021-10-17] MEDS ORDERED: atenoloL 50 MG TAB PO SCH (11:00)
--- NOTE | 2021-10-17 11:04 | Progress Note ---
Assessment and Plan 1. Shortness of breath and dyspnea with acute arterial desaturation rule out Covid 19 infection 2. Chronic obstructive pulmonary disease 3. Essential hypertension 4. Abnormal chest x-ray showing small to moderate size right pleural effusion. 5. Renal insufficiency Plan. Patient is currently stable rhythm is sinus. Repeat chest x-ray shows cardiomegaly with small to moderate size right pleural effusion. Echocardiogram shows normal left ventricular size with mild global hypokinesis left ventricular ejection fraction of 40 to 45%. Patient's will have a Lexiscan thallium scan before discharge to rule out underlying ischemic coronary artery disease. Check TSH level Subjective Date of service: 10/17/21 Interval history: No cardiac symptoms Objective Vital Signs Temp Pulse Pulse Resp BP Pulse Ox 10/17/21 08:00 97.9 F 10/17/21 07:45 97 10/17/21 04:00 98.1 F 61 22 96 10/17/21 03:07 64 181/85 10/17/21 00:00 97.9 F 55 L 25 H 94 10/16/21 22:00 55 L 10/16/21 20:40 97 10/16/21 20:00 97.5 F L 55 L 25 H 97 10/16/21 16:00 71 24 97 10/16/21 12:40 71 24 97 - Physical Examination HEENT: Positive: PERRL, Normocephaly, Mucus Membranes Moist Neck: Positive: neck supple, trachea midline Cardiac: Positive: Regular Rate, S1/S2, PMI, Laterally Displaced. Negative: S3, S4 Lungs: Positive: clear to auscultation, No Wheeze, Rales, Rhonchi Neuro: Positive: Grossly Intact Abdomen: Positive: Unremarkable, Soft Extremities: Absent: edema - Labs and Meds CBC 10/17/21 Range/Units 07:29 WBC 5.9 (4.5-11.0) K/mm3 RBC 4.09 (3.65-5.03) M/mm3 Hgb 13.1 (10.1-14.3) gm/dl Hct 40.5 (30.3-42.9) % Plt Count 217 (140-440) K/mm3 Lymph # (Auto) 0.8 L (1.2-5.4) K/mm3 [place] # (Auto) 0.8 (0.0-0.8) K/mm3 Eos # (Auto) 0.0 (0.0-0.4) K/mm3 Baso # (Auto) 0.0 (0.0-0.1) K/mm3 Comprehensive Metabolic Panel 10/17/21 Range/Units 07:29 Sodium 135 L (137-145) mmol/L Potassium 3.9 (3.6-5.0) mmol/L Chloride 93.7 L (98-107) mmol/L Carbon Dioxide 29 D (22-30) mmol/L BUN 31 H (7-17) mg/dL Creatinine 1.4 H (0.6-1.2) mg/dL Glucose 91 (65-100) mg/dL Calcium 9.3 (8.4-10.2) mg/dL
[2021-10-17] MEDS: NIFEdipine XL 90 MG TAB PO SCH (11:40)
[2021-10-17] MEDS: hydrALAZINE 25 MG TAB PO SCH ×2 (11:41→23:03)
--- NOTE | 2021-10-17 12:08 | Progress Note ---
Assessment and Plan 71 y/o female with acute respiratory failure secondary to volume overload from CHF exacerbation. 10/17/21: Stable on 3 liters. Can transfer to floor. No steroids. Will need ambulatory walk test at discharge. 1. Weaned from bipap 2. should be assessed for central sleep apnea as an outpatient given systolic heart failure 3. Agree with no systemic steroids at present 4 Wean oxygen for sats >88% 5. Likely will need ambulatory pulse ox prior to discharge 6. Thank you for the consult, will continue to follow along with you. Subjective Date of service: 10/17/21 Interval history: No acute events. STable on 3 liters. Objective Vital Signs - 12hr 10/17/21 10/17/21 10/17/21 03:07 04:00 07:45 Temperature 98.1 F Pulse Rate 64 Pulse Rate [ 61 From Monitor] Respiratory 22 Rate Blood Pressure 181/85 O2 Sat by Pulse 96 97 Oximetry 10/17/21 10/17/21 10/17/21 08:00 10:00 11:41 Temperature 97.9 F Pulse Rate 70 67 Pulse Rate [ From Monitor] Respiratory Rate Blood Pressure 129/93 O2 Sat by Pulse Oximetry Constitutional: no acute distress, asleep Eyes: non-icteric Neck: supple Ascultation: Bilateral: rales (right greater than left) Tactile fremitus: Right: diminished (base) Cardiovascular: regular rate and rhythm CBC and BMP: 10/17/21 07:29 10/17/21 07:29 ABG, PT/INR, D-dimer: ABG ABG pH 7.285 pH Units (7.350-7.450) L 10/16/21 00:04 ABG pCO2 48.3 mm Hg 10/16/21 00:04 ABG pO2 89.9 mm Hg (80.0-90.0) 10/16/21 00:04 ABG O2 Saturation 96.0 % (95.0-99.0) 10/16/21 00:04 PT/INR, D-dimer PT 14.8 Sec. (12.2-14.9) 10/15/21 23:43 INR 1.05 (0.87-1.13) 10/15/21 23:43 Abnormal lab findings: Abnormal Labs 10/15/21 10/15/21 10/15/21 23:43 23:43 23:43 WBC 13.9 H MCV 99 H RDW 15.4 H Lymph % (Auto) 4.6 L [place] % (Auto) 8.3 H Lymph # (Auto) 0.6 L [place] # (Auto) 1.2 H Seg Neutrophils % 86.4 H Seg Neutrophils # 12.0 H ABG pH ABG Base Excess ABG Hemoglobin Oxyhemoglobin Sodium 132 L Chloride 97.7 L Carbon Dioxide 21 L BUN 22 H Creatinine 1.3 H Glucose 151 H NT-Pro-B Natriuret Pep 59361 H TSH 10/16/21 10/17/21 10/17/21 00:04 07:29 07:29 WBC MCV 99 H RDW Lymph % (Auto) 13.0 L [place] % (Auto) 14.2 H Lymph # (Auto) 0.8 L [place] # (Auto) Seg Neutrophils % 72.3 H Seg Neutrophils # ABG pH 7.285 L ABG Base Excess -4.4 L ABG Hemoglobin 11.8 L Oxyhemoglobin 94.2 L Sodium 135 L Chloride 93.7 L Carbon Dioxide BUN 31 H Creatinine 1.4 H Glucose NT-Pro-B Natriuret Pep TSH 10/17/21 10:43 WBC MCV RDW Lymph % (Auto) [place] % (Auto) Lymph # (Auto) [place] # (Auto) Seg Neutrophils % Seg Neutrophils # ABG pH ABG Base Excess ABG Hemoglobin Oxyhemoglobin Sodium Chloride Carbon Dioxide BUN Creatinine Glucose NT-Pro-B Natriuret Pep TSH 5.970 H
[2021-10-17] MEDS: ALBUTEROL 8.5 GM MDI INHALATION IH SCH ×3 (14:46→20:14)
[2021-10-17] MEDS: METOPROLOL TARTRATE 50 MG TAB PO SCH (23:03)
[2021-10-18] MEDS: ACETAMINOPHEN 325 MG TAB PO PRN (05:34)
[2021-10-18] MEDS: hydrALAZINE 20 MG/1 ML INJ IV PRN (05:34)
[2021-10-18] MEDS: FUROSEMIDE 40 MG/4 ML INJ IV SCH (05:35)
[2021-10-18] MEDS: hydrALAZINE 25 MG TAB PO SCH (09:58)
[2021-10-18] MEDS: HEPARIN 5,000 UNIT/1 ML VIAL SUB-Q SCH ×2 (09:59→21:39)
[2021-10-18] MEDS: levoFLOXacin 750 MG TAB PO SCH (09:59)
[2021-10-18] MEDS: FAMOTIDINE 10 MG TAB PO SCH ×2 (09:59→21:39)
[2021-10-18] MEDS: METOPROLOL TARTRATE 50 MG TAB PO SCH ×3 (09:59→21:41)
[2021-10-18] MEDS: NIFEdipine XL 90 MG TAB PO SCH (09:59)
--- NOTE | 2021-10-18 10:07 | Progress Note ---
Assessment and Plan Assessment and plan: History of present illness: 71 years old female with history of COPD and hypertension was brought to the emergency room because of progressive shortness of breath for last 1 to 2 days. Patient was found to had O2 sat in the 60s. Patient recently diagnosed with Covid , fully vaccinated no fever , no chest pain , EMS found her with o2 sat in 60s , put her on face mask and her o2 here was 85 , In the emergency room patient WBC was 13.9, BNP was [address]21. Chest x-ray shows probable mild pulmonary vascular congestion/interstitial edema. Mild/moderate confluent pleural parenchymal opacity in the right lower hemithorax may be related to asymmetric edema, pneumonia or aspiration So going to admit the patient we will put the patient on antibiotic, will IV Lasix will consult in cardiology for evaluation Hospital Course: 10/16/2021: Remains on BIPAP mask. Lower extremity edema and rales noted on exam. Will continue diuresis. ECHO findings noted as well as cardio recs. Pulmonology consulted for assistance with BIPAP. Discussed with patient who would like to remain full code. She requested I not update family about medical status when I asked who I could call. 10/17/2021: improvement clinically. On Nasal cannula 4L satting 94-95% on my encounter. CXR shows improvement in interstitial edeam. Urine output good. Slight inc in Cr but will continue diuresis one more day and can likely drop lasix dose tomorrow. 10/18/2021: Blood pressure elevated overnight and this AM. Increased hydralazine and metoprolol. Added spironalactone. Lasix dropped to 20 mg IV q daily. Patient is COVID positive. continue empiric abx, steroids. Consultation placed to infectious disease. Pending cardiology rec re: NM stress test ordered. Assessment and Plan: #Acute Hypoxic respiratory failure (improving) - etiology likely decompensated heart failure. complicated by COVID 19 Pneumonia - on admission was on BIPAP, abg shows respiratory acidosis. - de-escalated to NC. - will attempt to wean as sats tolerate. - pulmonology consulted. #Sepsis POA - wbc: 13K - CXR shows patchy infiltrate RLL field - COVID pcr sent' - bcx, scx - abx: levaquin #COVID 19 Pneumonia - patchy opacity in RLL field, could represent PNA. - RT PCR sent for COVID - Bcx, scx - currently on levaquin - start decadron 6 mg IV daily. - consultaiton placed to infectious disease #Acute Decompensated heart failure (improving) - concern for decompensated heart failure given lower extremity edema and interstitial - BNP 18172 - CXR shows pulmonary edema - ECHO fdinings as below - cardiology consulted - Lasix 40 mg IV bid. #HFrEF - 40-45% on echo - mild concentric hypertrophey - diuresis as above - on atenolol at home, will change to metoprolol. hold naida due to renal fx. - added spironalactone 25 mg po daily # Acute kidney injury due to vasomotor nephropathy - Cr: 1.3-->1.4 - will trend on bmp - renally adjust meds - hold home naida-i #Essential hypertension - reports being on 4 Anti-HTN meds - resume home hydralazine, increased to 100 tid. hold lisinopril. - will change atenolol to metoprolol 100 mg po bid. - will need medication reconciliation - Labetalol 10 mg IV q4hr prn #Sick euthyroid syndrome - TSH: 5.5 - no indication while treated in hospital - will advise to recheck in 6 weeks as OP. #Advance care planning Disease education conducted, care plan discussed, diagnoses discussed, prognosis discussed, patient is full code, patient acknowledges understanding and agree with care plan, +30 minutes. The high probability of a clinically significant, sudden or life threatening deterioration of the [pulmonary, cardiac] system(s) required my full and direct attention, intervention and personal management. The aggregate critical care time was [60] minutes. This time is in addition to time spent performing reported procedures but includes the following: [x] Data Review and interpretation [x] Patient assessment and monitoring of vital signs [x] Documentation [x] Medication orders and management History Interval history: Resting comfortably no complaints. On supplemental O2. Hospitalist Physical - Physical exam Narrative exam: Physical Exam: VITAL SIGNS: Reviewed. GENERAL: The patient appears normally developed, Vital signs as documented. elderly woman appears stated age. on nasal cannula HEAD: No signs of head trauma. EYES: Pupils are equal. Extraocular motions intact. EARS: Hearing grossly intact. MOUTH: Oropharynx is normal. NECK: No adenopathy, no JVD. CHEST: bilateral rales CARDIAC: Regular rate and rhythm. S1 and S2, without murmurs, gallops, or rubs. VASCULAR: bilateral 1-2+ LE edema. Peripheral pulses normal and equal in all extremities. ABDOMEN: Soft, non tender and non distended. No rebound or guarding, and no masses palpated. Bowel Sounds normal. MUSCULOSKELETAL: Good range of motion of all major joints. Extremities without clubbing, cyanosis or edema. NEUROLOGIC EXAM: Alert and oriented x 4. no focal sensory or strength deficits. PSYCHIATRIC: Mood normal. SKIN: detail exam as documented in skin assessment - Constitutional Vitals: Temp Pulse Resp BP Pulse Ox 97.7 F 66 23 180/71 92 10/18/21 08:51 10/18/21 09:59 10/18/21 04:00 10/18/21 09:59 10/18/21 04:00 General appearance: Present: mild distress HEART Score - HEART Score Troponin: Troponin T < 0.010 ng/mL (0.00-0.029) 10/15/21 23:43 Results - Labs CBC & Chem 7: 10/17/21 07:29 10/17/21 07:29 Labs: Laboratory Last Values WBC 5.9 K/mm3 (4.5-11.0) 10/17/21 07:29 RBC 4.09 M/mm3 (3.65-5.03) 10/17/21 07:29 Hgb 13.1 gm/dl (10.1-14.3) 10/17/21 07:29 Hct 40.5 % (30.3-42.9) 10/17/21 07:29 MCV 99 fl (79-97) H 10/17/21 07:29 MCH 32 pg (28-32) 10/17/21 07:29 MCHC 32 % (30-34) 10/17/21 07:29 RDW 14.5 % (13.2-15.2) 10/17/21 07:29 Plt Count 217 K/mm3 (140-440) 10/17/21 07:29 Lymph % (Auto) 13.0 % (13.4-35.0) L 10/17/21 07:29 [place] % (Auto) 14.2 % (0.0-7.3) H 10/17/21 07:29 Eos % (Auto) 0.2 % (0.0-4.3) 10/17/21 07: Baso % (Auto) 0.3 % (0.0-1.8) 10/17/21 07: Lymph # (Auto) 0.8 K/mm3 (1.2-5.4) L 10/17/21 07: [place] # (Auto) 0.8 K/mm3 (0.0-0.8) 10/17/21 07: Eos # (Auto) 0.0 K/mm3 (0.0-0.4) 10/17/21 07: Baso # (Auto) 0.0 K/mm3 (0.0-0.1) 10/17/21 07: Seg Neutrophils % 72.3 % (40.0-70.0) H 10/17/21 07: Seg Neutrophils # 4.3 K/mm3 (1.8-7.7) 10/17/21 07: PT 14.8 Sec. (12.2-14.9) 10/15/21 23:43 INR 1.05 (0.87-1.13) 10/15/21 23:43 ABG pH 7.285 pH Units (7.350-7.450) L 10/16/21 00:04 ABG pCO2 48.3 mm Hg 10/16/21 00:04 ABG pO2 89.9 mm Hg (80.0-90.0) 10/16/21 00:04 ABG HCO3 22.4 mmol/L (20.0-26.0) 10/16/21 00:04 ABG O2 Saturation 96.0 % (95.0-99.0) 10/16/21 00:04 ABG O2 Content 15.7 (0.0-44) 10/16/21 00:04 ABG Base Excess -4.4 mmol/L (-2.0-3.0) L 10/16/21 00:04 ABG Hemoglobin 11.8 gm/dl (12.0-16.0) L 10/16/21 00:04 ABG Carboxyhemoglobin 1.4 % (0.0-5.0) 10/16/21 00:04 ABG Methemoglobin 0.5 % (0.0-1.5) 10/16/21 00:04 Oxyhemoglobin 94.2 % (95.0-99.0) L 10/16/21 00:04 FiO2 50 % 10/16/21 00:04 Sodium 135 mmol/L (137-145) L 10/17/21 07:29 Potassium 3.9 mmol/L (3.6-5.0) 10/17/21 07:29 Chloride 93.7 mmol/L (98-107) L 10/17/21 07:29 Carbon Dioxide 29 mmol/L (22-30) D 10/17/21 07:29 Anion Gap 16 mmol/L 10/17/21 07:29 BUN 31 mg/dL (7-17) H 10/17/21 07:29 Creatinine 1.4 mg/dL (0.6-1.2) H 10/17/21 07:29 Estimated GFR 45 ml/min 10/17/21 07:29 BUN/Creatinine Ratio 22 % 10/17/21 07:29 Glucose 91 mg/dL (65-100) 10/17/21 07:29 Calcium 9.3 mg/dL (8.4-10.2) 10/17/21 07:29 Total Bilirubin 0.40 mg/dL (0.1-1.2) 10/15/21 23:43 AST 20 units/L (5-40) 10/15/21 23:43 ALT 28 units/L (7-56) 10/15/21 23:43 Alkaline Phosphatase 80 units/L (35-129) 10/15/21 23:43 Troponin T < 0.010 ng/mL (0.00-0.029) 10/15/21 23:43 NT-Pro-B Natriuret Pep 17672 pg/mL (0-900) H 10/15/21 23:43 Total Protein 7.0 g/dL (6.3-8.2) 10/15/21 23:43 Albumin 4.3 g/dL (3.9-5) 10/15/21 23:43 Albumin/Globulin Ratio 1.6 % 10/15/21 23:43 Lipase 18 units/L (13-60) 10/15/21 23:43 Procalcitonin 3.71 ng/mL (<0.15) 10/17/21 10:43 TSH 5.970 mlU/mL (0.270-4.200) H 10/17/21 10:43 Urine Color Straw (Yellow) 10/16/21 Unknown Urine Turbidity Clear (Clear) 10/16/21 Unknown Urine pH 5.0 (5.0-7.0) 10/16/21 Unknown Ur Specific [place] 1.005 (1.003-1.030) 10/16/21 Unknown Urine Protein <15 mg/dl mg/dL (Negative) 10/16/21 Unknown Urine Glucose (UA) Neg mg/dL (Negative) 10/16/21 Unknown Urine Ketones Neg mg/dL (Negative) 10/16/21 Unknown Urine Blood Neg (Negative) 10/16/21 Unknown Urine Nitrite Neg (Negative) 10/16/21 Unknown Urine Bilirubin Neg (Negative) 10/16/21 Unknown Urine Urobilinogen < 2.0 mg/dL (<2.0) 10/16/21 Unknown Ur Leukocyte Esterase Neg (Negative) 10/16/21 Unknown Urine WBC (Auto) 0.0 /HPF (0.0-6.0) 10/16/21 Unknown Urine RBC (Auto) < 1.0 /HPF (0.0-6.0) 10/16/21 Unknown Coronavirus (PCR) Positive (Negative) A 10/16/21 12:32 [place]/IV: Voiding Method External Female Catheter Active Medications - Current Medications Current Medications: Generic Name Dose Route Start Last Admin Trade Name Freq PRN Reason Stop Dose Admin Acetaminophen 650 mg 10/16/21 03:40 10/18/21 05:34 Acetaminophen 325 Mg Tab PO 650 mg Q4H PRN Administration Pain MILD(1-3)/Fever >100.5/PEREZ Albuterol 2 puff 10/17/21 02:00 10/17/21 20:14 Albuterol 8.5 Gm Mdi Inhalation IH 2 puff Q6HRT ANA Administration Famotidine 10 mg 10/16/21 10:00 10/18/21 09:59 Famotidine 10 Mg Tab PO 10 mg BID ANA Administration Furosemide 20 mg 10/19/21 10:00 Furosemide 20 Mg/2 Ml Inj IV QDAY ANA Heparin Sodium (Porcine) 5,000 unit 10/16/21 10:00 10/18/21 09:59 Heparin 5,000 Unit/1 Ml Vial SUB-Q 5,000 unit Q12HR ANA Administration Hydralazine HCl 10 mg 10/17/21 02:38 10/18/21 05:34 Hydralazine 20 Mg/1 Ml Inj IV 10 mg Q6HR PRN Administration Hypertension Hydralazine HCl 50 mg 10/17/21 11:00 10/18/21 09:58 Hydralazine 25 Mg Tab PO 50 mg BID ANA Administration Hydromorphone HCl 0.5 mg 10/16/21 03:40 Hydromorphone 1 Mg/1 Ml Inj IV Q3H PRN Pain , Severe (7-10) Levofloxacin 750 mg 10/16/21 10:00 10/18/21 09:59 Levofloxacin 750 Mg Tab PO 750 mg Q48HR ANA Administration Protocol Metoprolol Tartrate 50 mg 10/17/21 22:00 10/18/21 09:59 Metoprolol Tartrate 50 Mg Tab PO 50 mg BID ANA Administration Morphine Sulfate 2 mg 10/16/21 03:40 Morphine 2 Mg/1 Ml Inj IV Q4H PRN Pain, Moderate (4-6) Nifedipine 90 mg 10/17/21 11:00 10/18/21 09:59 Nifedipine Xl 90 Mg Tab PO 90 mg QDAY ANA Administration Ondansetron HCl 4 mg 10/16/21 03:40 Ondansetron 4 Mg/2 Ml Inj IV Q8H PRN Nausea And Vomiting Sodium Chloride 10 ml 10/16/21 10:00 10/18/21 10:00 Sodium Chloride 0.9% 10 Ml Flush Syringe IV 10 ml BID ANA Administration Sodium Chloride 10 ml 10/16/21 03:40 Sodium Chloride 0.9% 10 Ml Flush Syringe IV PRN PRN LINE FLUSH Nutrition/Malnutrition Assess - Dietary Evaluation Nutrition/Malnutrition Findings: Nutrition Notes Start: 10/16/21 12:16 Freq: Status: Active Protocol: Document 10/16/21 12:16 CW (Rec: 10/16/21 12:24 CW [id number]) Nutrition Notes Need for Assessment generated from: MST Initial or Follow up Assessment Current Diagnosis COPD,Hypertension,Heart Failure,Respiratory Failure Other Pertinent Diagnosis SOB, PE, pneu, covid PUI Current Diet Cardiac Labs/Tests Na 132 BUN 22 Cr 1.3 BG 151 Pertinent Medications Lasix Height 5 ft 8 in Weight 63.503 kg [place] Body Weight (kg) 63.63 BMI 21.2 Weight change and time frame weight increase likely related to fluid shifts Weight Status Underweight Subjective/Other Information Screen for skin risk. Keanu score of 17. Pt on contact rpecautions. Pt unavailable by phone. RN unavailable x 2. No intakes recorded. Will monitor for stable intakes and need for ONS. Burn Absent Trauma Absent GI Symptoms None Food Allergy No Skin Integrity/Comment Intact Minimum of two criteria Yes Fluid Accumulation Moderate to Severe (severe) Reduced [place] Strength Measurably Reduced (severe) #1 Nutrition Diagnosis Malnutrition Comments: mild Etiology 2+ edema and bilateral weak ink printer strength Is patient on ventilator? No Is Patient Ambulatory and/or Out of Bed No REE-([facility]-confined to bed) 6210.111 Calculation Used for Recommendations [facility] Additional Notes protein needs: 64 - 76g (1 - 1 .2g/kgBW) fluid needs: 1 ml/kcal or per MD order Nutrition Intervention Change Diet Order: Continue diet as ordered Goal #1 Meet at least 80% of EER Anticipated Discharge Needs: Cardiac Diet Follow-Up By: 10/20/21 Additional Comments F/U for stable intakes, ONS need
[2021-10-18] MEDS: ALBUTEROL 8.5 GM MDI INHALATION IH SCH ×4 (10:35→21:26)
--- NOTE | 2021-10-18 10:41 | Progress Note ---
Assessment and Plan 71 y/o female with acute respiratory failure secondary to volume overload from CHF exacerbation and COVID positive. 10/18/21: Stable on 3 liters. Continues to diurese. At this point, most likely pulm edema more for respiratory failure than COVID. WIll hold on steroids for now. Does not need Remdesivir. Still stable for transfer but will need to go to COVID floor with remote tele 10/17/21: Stable on 3 liters. Can transfer to floor. No steroids. Will need ambulatory walk test at discharge. 1. Weaned from bipap 2. should be assessed for central sleep apnea as an outpatient given systolic heart failure 3. Agree with no systemic steroids at present 4 Wean oxygen for sats >88% 5. Likely will need ambulatory pulse ox prior to discharge 6. Thank you for the consult, will continue to follow along with you. Subjective Date of service: 10/18/21 Interval history: Stable on 3 liters. Patient is COVID positive as well. CXR improved with diuretic therapy. Objective Vital Signs - 12hr 10/17/21 10/17/21 10/18/21 23:03 23:53 00:00 Temperature 99.1 F Pulse Rate 76 Pulse Rate [ 63 From Monitor] Respiratory 17 Rate Blood Pressure 191/69 O2 Sat by Pulse 98 Oximetry 10/18/21 10/18/21 10/18/21 04:00 05:34 08:51 Temperature 98.4 F 97.7 F Pulse Rate 66 Pulse Rate [ 69 From Monitor] Respiratory 23 Rate Blood Pressure 191/80 O2 Sat by Pulse 92 Oximetry 10/18/21 10/18/21 10/18/21 09:58 09:59 10:35 Temperature Pulse Rate 62 66 Pulse Rate [ From Monitor] Respiratory Rate Blood Pressure 180/71 180/71 O2 Sat by Pulse 93 Oximetry Constitutional: no acute distress, asleep Eyes: non-icteric Neck: supple Ascultation: Bilateral: rales (right greater than left) Tactile fremitus: Right: diminished (base) Cardiovascular: regular rate and rhythm CBC and BMP: 10/17/21 07:29 10/17/21 07:29 ABG, PT/INR, D-dimer: ABG ABG pH 7.285 pH Units (7.350-7.450) L 10/16/21 00:04 ABG pCO2 48.3 mm Hg 10/16/21 00:04 ABG pO2 89.9 mm Hg (80.0-90.0) 10/16/21 00:04 ABG O2 Saturation 96.0 % (95.0-99.0) 10/16/21 00:04 PT/INR, D-dimer PT 14.8 Sec. (12.2-14.9) 10/15/21 23:43 INR 1.05 (0.87-1.13) 10/15/21 23:43 Abnormal lab findings: Abnormal Labs 10/15/21 10/15/21 10/15/21 23:43 23:43 23:43 WBC 13.9 H MCV 99 H RDW 15.4 H Lymph % (Auto) 4.6 L [place] % (Auto) 8.3 H Lymph # (Auto) 0.6 L [place] # (Auto) 1.2 H Seg Neutrophils % 86.4 H Seg Neutrophils # 12.0 H ABG pH ABG Base Excess ABG Hemoglobin Oxyhemoglobin Sodium 132 L Chloride 97.7 L Carbon Dioxide 21 L BUN 22 H Creatinine 1.3 H Glucose 151 H NT-Pro-B Natriuret Pep 10036 H TSH Coronavirus (PCR) 10/16/21 10/16/21 10/17/21 00:04 12:32 07:29 WBC MCV 99 H RDW Lymph % (Auto) 13.0 L [place] % (Auto) 14.2 H Lymph # (Auto) 0.8 L [place] # (Auto) Seg Neutrophils % 72.3 H Seg Neutrophils # ABG pH 7.285 L ABG Base Excess -4.4 L ABG Hemoglobin 11.8 L Oxyhemoglobin 94.2 L Sodium Chloride Carbon Dioxide BUN Creatinine Glucose NT-Pro-B Natriuret Pep TSH Coronavirus (PCR) Positive A 10/17/21 10/17/21 07:29 10:43 WBC MCV RDW Lymph % (Auto) [place] % (Auto) Lymph # (Auto) [place] # (Auto) Seg Neutrophils % Seg Neutrophils # ABG pH ABG Base Excess ABG Hemoglobin Oxyhemoglobin Sodium 135 L Chloride 93.7 L Carbon Dioxide BUN 31 H Creatinine 1.4 H Glucose NT-Pro-B Natriuret Pep TSH 5.970 H Coronavirus (PCR)
[2021-10-18] MEDS ORDERED: dexAMETHasone 4 MG/ML VIAL IV SCH (12:00)
[2021-10-18] MEDS: SPIRONOLACTONE 25 MG TAB PO SCH (12:56)
--- NOTE | 2021-10-18 14:54 | Progress Note ---
Assessment and Plan - Patient Problems (1) Shortness of breath Current Visit: Yes Status: Acute Plan to address problem: Patient has shortness of breath with acute Covid pneumonia, manifested also by a small to moderate sized right pleural effusion. Continue management of acute Covid pneumonia. (2) Left ventricular dysfunction Current Visit: Yes Status: Acute Plan to address problem: Patient has mild left ventricular systolic dysfunction, ejection fraction 40 to 45%. No prior left ventricular function assessment is available at this time for comparison, we will continue conservative medical management. Subjective Date of service: 10/18/21 Interval history: Patient presented with acute Covid infection shortness of breath, hypoxemia. Chest x-ray shows a small to moderate sized right pleural effusion. Echocardiogram shows mild left ventricular systolic dysfunction with ejection fraction 40 to 45%. Objective Vital Signs Temp Pulse Pulse Pulse Resp Resp BP 10/18/21 12:56 67 194/91 10/18/21 12:55 61 184/91 10/18/21 12:00 98 F 65 22 10/18/21 10:35 10/18/21 10:00 64 10/18/21 09:59 66 180/71 10/18/21 09:58 62 180/71 10/18/21 08:51 97.7 F 10/18/21 08:00 70 22 10/18/21 05:34 66 191/80 10/18/21 04:00 98.4 F 69 23 10/18/21 00:00 63 17 10/17/21 23:53 99.1 F 10/17/21 23:03 76 191/69 10/17/21 22:00 58 L 10/17/21 20:21 10/17/21 20:00 99.1 F 69 71 19 18 10/17/21 19:56 78 180/83 10/17/21 16:00 70 21 Pulse Ox 10/18/21 12:56 10/18/21 12:55 10/18/21 12:00 95 10/18/21 10:35 93 10/18/21 10:00 10/18/21 09:59 10/18/21 09:58 10/18/21 08:51 10/18/21 08:00 94 10/18/21 05:34 10/18/21 04:00 92 10/18/21 00:00 98 10/17/21 23:53 10/17/21 23:03 10/17/21 22:00 10/17/21 20:21 95 10/17/21 20:00 96 10/17/21 19:56 10/17/21 16:00 99 - Physical Examination Narrative exam: Full physical exam is deferred due to the patient's acute Covid infection. General: No Apparent Distress
--- NOTE | 2021-10-18 15:51 | Consultation ---
History of Present Illness - Reason for Consult Consult date: 10/18/21 - History of Present Illness 71-year-old female past medical history COPD, hypertension admitted to hospital due to progressive shortness of breath over the past 2 days. She was found to be hypoxic on admission, and notably her was recently diagnosed with COVID-19. Afebrile since admission with a white count 5.9. Covid positive. Decreased renal function, EGFR 45. Currently on 3 L nasal cannula. Currently on Levaquin. Imaging personally viewed: Chest x-ray: Interstitial edema, improving opacity in the right lower hemithorax. Review of systems: Deferred to reduce to the risk of transmission of COVID-19 Past History Past Medical History: COPD, hypertension Past Surgical History: No surgical history Social history: no significant social history Family history: hypertension Medications and Allergies Allergies Allergy/AdvReac Type Severity Reaction Status Date / Time No Known Allergies Allergy Verified 10/16/21 01:47 Home Medications Medication Instructions Recorded Confirmed Last Taken Type Albuterol Sulfate [Proventil Hfa] 6.7 gm IH Q4H PRN 10/16/21 10/16/21 10/16/21 10:09 History Hydralazine HCl 50 mg PO BID 10/16/21 10/16/21 10/15/21 09:00 History NIFEdipine [Nifedipine ER] 90 mg PO QDAY 10/16/21 10/16/21 10/15/21 09:00 History atenoloL [Tenormin] 50 mg PO BID 10/16/21 10/16/21 10/15/21 09:00 History lisinopriL [Zestril TAB] 40 mg PO QDAY 10/16/21 10/16/21 10/15/21 09:00 History Active Meds: Active Medications Acetaminophen (Acetaminophen 325 Mg Tab) 650 mg PO Q4H PRN PRN Reason: Pain MILD(1-3)/Fever >100.5/PEREZ Last Admin: 10/18/21 05:34 Dose: 650 mg Albuterol (Albuterol 8.5 Gm Mdi Inhalation) 2 puff IH Q6HRT [facility] Last Admin: 10/18/21 14:03 Dose: Not Given Famotidine (Famotidine 10 Mg Tab) 10 mg PO BID [facility] Last Admin: 10/18/21 09:59 Dose: 10 mg Furosemide (Furosemide 20 Mg/2 Ml Inj) 20 mg IV QDAY [facility] Heparin Sodium (Porcine) (Heparin 5,000 Unit/1 Ml Vial) 5,000 unit SUB-Q Q12HR [facility] Last Admin: 10/18/21 09:59 Dose: 5,000 unit Hydralazine HCl (Hydralazine 20 Mg/1 Ml Inj) 10 mg IV Q6HR PRN PRN Reason: Hypertension Last Admin: 10/18/21 05:34 Dose: 10 mg Hydralazine HCl (Hydralazine 100 Mg Tab) 100 mg PO TID [facility] Hydromorphone HCl (Hydromorphone 1 Mg/1 Ml Inj) 0.5 mg IV Q3H PRN PRN Reason: Pain , Severe (7-10) Levofloxacin (Levofloxacin 750 Mg Tab) 750 mg PO Q48HR [facility]; Protocol Last Admin: 10/18/21 09:59 Dose: 750 mg Metoprolol Tartrate (Metoprolol Tartrate 50 Mg Tab) 100 mg PO BID [facility] Last Admin: 10/18/21 12:55 Dose: 100 mg Morphine Sulfate (Morphine 2 Mg/1 Ml Inj) 2 mg IV Q4H PRN PRN Reason: Pain, Moderate (4-6) Nifedipine (Nifedipine Xl 90 Mg Tab) 90 mg PO QDAY [facility] Last Admin: 10/18/21 09:59 Dose: 90 mg Ondansetron HCl (Ondansetron 4 Mg/2 Ml Inj) 4 mg IV Q8H PRN PRN Reason: Nausea And Vomiting Sodium Chloride (Sodium Chloride 0.9% 10 Ml Flush Syringe) 10 ml IV BID [facility] Last Admin: 10/18/21 10:00 Dose: 10 ml Sodium Chloride (Sodium Chloride 0.9% 10 Ml Flush Syringe) 10 ml IV PRN PRN PRN Reason: LINE FLUSH Spironolactone (Spironolactone 25 Mg Tab) 25 mg PO QDAY [facility] Last Admin: 10/18/21 12:56 Dose: 25 mg Physical Examination - Physical Exam Narrative exam: Physical exam deferred to reduce risk of transmission of COVID-19. Please refer to primary team's note. - Constitutional Vitals: Vital Signs Temp Pulse Resp BP Pulse Ox 98 F 67 22 194/91 95 10/18/21 12:00 10/18/21 12:56 10/18/21 12:00 10/18/21 12:56 10/18/21 12:00 Temperature -Last 24 Hours Temperature 98 F Temperature 97.7 F Temperature 98.4 F Temperature 99.1 F Temperature 99.1 F Results - Labs CBC & Chem 7: 10/17/21 07:29 10/17/21 07:29 Assessment and Plan Cultures: Blood culture no growth so far COVID-19 PCR positive A/P: 71-year-old female past medical history COPD, hypertension #Acute hypoxic respiratory failure: Currently on 3 L nasal cannula, improving. Likely secondary to CHF exacerbation #COVID-19 infection: [place] less likely to be the cause of her respiratory failure. Not currently in any treatment. Doing well. #Acute CHF, on diuresis #JEAN: Renally dose antibiotics Recs: -Agree with no need for COVID-19 treatment at the present time. -Complete 5 days Levaquin -Diuresis per primary -Anticoagulation per hospital protocol Thank you for the consult, we will continue to follow. MD [facility] ([facility] O: [phone] F: [phone]
[2021-10-18] MEDS: hydrALAZINE 100 MG TAB PO SCH ×2 (18:09→21:39)
[2021-10-18] MEDS: IPRATROPIUM/ALBUTEROL SULFATE 3 ML AMPUL.NEB IH SCH (22:22)
[2021-10-19] MEDS: ALBUTEROL 8.5 GM MDI INHALATION IH SCH ×3 (03:08→14:59)
[2021-10-19] MEDS: hydrALAZINE 20 MG/1 ML INJ IV PRN (04:15)
--- NOTE | 2021-10-19 09:51 | Progress Note ---
Assessment and Plan 71 y/o female with acute respiratory failure secondary to volume overload from CHF exacerbation and COVID positive. 10/19/21: Changed lasix to 40 IV BID. Send stat chemistry this am and please check tomorrow. ID agrees with holding on COVID therapy. Will continue to follow. 10/18/21: Stable on 3 liters. Continues to diurese. At this point, most likely pulm edema more for respiratory failure than COVID. WIll hold on steroids for now. Does not need Remdesivir. Still stable for transfer but will need to go to COVID floor with remote tele 10/17/21: Stable on 3 liters. Can transfer to floor. No steroids. Will need ambulatory walk test at discharge. 1. Weaned from bipap 2. should be assessed for central sleep apnea as an outpatient given systolic heart failure 3. Agree with no systemic steroids at present 4 Wean oxygen for sats >88% 5. Likely will need ambulatory pulse ox prior to discharge 6. Thank you for the consult, will continue to follow along with you. Subjective Date of service: 10/19/21 Interval history: Oxygen increased to 4 liters. Positive fluid balance in the last 24 hours. No labs this morning. Objective Vital Signs - 12hr 10/18/21 10/18/21 10/18/21 22:00 22:40 23:00 Temperature Pulse Rate 64 56 L 55 L Pulse Rate [ 58 L From Monitor] Respiratory 24 22 14 Rate Blood Pressure 171/70 171/70 165/66 O2 Sat by Pulse 95 93 91 Oximetry 10/18/21 10/19/21 10/19/21 23:30 00:00 00:30 Temperature 98.3 F Pulse Rate 53 L 53 L 55 L Pulse Rate [ From Monitor] Respiratory 22 20 18 Rate Blood Pressure 165/66 175/74 175/74 O2 Sat by Pulse 92 94 92 Oximetry 10/19/21 10/19/21 10/19/21 01:00 01:30 02:00 Temperature Pulse Rate 58 L 60 60 Pulse Rate [ From Monitor] Respiratory 23 23 25 H Rate Blood Pressure 175/74 174/83 174/83 O2 Sat by Pulse 92 91 92 Oximetry 10/19/21 10/19/21 10/19/21 02:30 03:00 03:30 Temperature Pulse Rate 58 L 61 Pulse Rate [ From Monitor] Respiratory 26 H 17 Rate Blood Pressure 174/87 177/102 189/83 O2 Sat by Pulse 92 92 91 Oximetry 10/19/21 10/19/21 10/19/21 04:00 04:15 04:30 Temperature 98.2 F Pulse Rate 61 56 L Pulse Rate [ From Monitor] Respiratory 15 Rate Blood Pressure 199/96 182/84 182/84 O2 Sat by Pulse 97 95 Oximetry 10/19/21 10/19/21 10/19/21 05:00 06:00 07:57 Temperature Pulse Rate 59 L 60 Pulse Rate [ From Monitor] Respiratory 26 H 20 Rate Blood Pressure 172/75 188/80 O2 Sat by Pulse 90 92 92 Oximetry Constitutional: no acute distress, asleep Eyes: non-icteric Neck: supple Ascultation: Bilateral: rales (right greater than left) Tactile fremitus: Right: diminished (base) Cardiovascular: regular rate and rhythm CBC and BMP: 10/17/21 07:29 10/17/21 07:29 ABG, PT/INR, D-dimer: ABG ABG pH 7.285 pH Units (7.350-7.450) L 10/16/21 00:04 ABG pCO2 48.3 mm Hg 10/16/21 00:04 ABG pO2 89.9 mm Hg (80.0-90.0) 10/16/21 00:04 ABG O2 Saturation 96.0 % (95.0-99.0) 10/16/21 00:04 PT/INR, D-dimer PT 14.8 Sec. (12.2-14.9) 10/15/21 23:43 INR 1.05 (0.87-1.13) 10/15/21 23:43 Abnormal lab findings: Abnormal Labs 10/15/21 10/15/21 10/15/21 23:43 23:43 23:43 WBC 13.9 H MCV 99 H RDW 15.4 H Lymph % (Auto) 4.6 L [place] % (Auto) 8.3 H Lymph # (Auto) 0.6 L [place] # (Auto) 1.2 H Seg Neutrophils % 86.4 H Seg Neutrophils # 12.0 H ABG pH ABG Base Excess ABG Hemoglobin Oxyhemoglobin Sodium 132 L Chloride 97.7 L Carbon Dioxide 21 L BUN 22 H Creatinine 1.3 H Glucose 151 H NT-Pro-B Natriuret Pep 33410 H TSH Coronavirus (PCR) 10/16/21 10/16/21 10/17/21 00:04 12:32 07:29 WBC MCV 99 H RDW Lymph % (Auto) 13.0 L [place] % (Auto) 14.2 H Lymph # (Auto) 0.8 L [place] # (Auto) Seg Neutrophils % 72.3 H Seg Neutrophils # ABG pH 7.285 L ABG Base Excess -4.4 L ABG Hemoglobin 11.8 L Oxyhemoglobin 94.2 L Sodium Chloride Carbon Dioxide BUN Creatinine Glucose NT-Pro-B Natriuret Pep TSH Coronavirus (PCR) Positive A 10/17/21 10/17/21 07:29 10:43 WBC MCV RDW Lymph % (Auto) [place] % (Auto) Lymph # (Auto) [place] # (Auto) Seg Neutrophils % Seg Neutrophils # ABG pH ABG Base Excess ABG Hemoglobin Oxyhemoglobin Sodium 135 L Chloride 93.7 L Carbon Dioxide BUN 31 H Creatinine 1.4 H Glucose NT-Pro-B Natriuret Pep TSH 5.970 H Coronavirus (PCR)
[2021-10-19] MEDS ORDERED: FUROSEMIDE 20 MG/2 ML INJ IV SCH (10:00)
[2021-10-19] MEDS ORDERED: FUROSEMIDE 40 MG/4 ML INJ IV ONE (10:30)
[2021-10-19 11:00] LABS: Calcium 9.1 mg/dL (8.4-10.2)
[2021-10-19 11:02] LABS: C-Reactive Protein 1.2 mg/dL (0.00-1.30)
[2021-10-19] MEDS: NIFEdipine XL 90 MG TAB PO SCH ×2 (11:04→21:40)
[2021-10-19] MEDS: FAMOTIDINE 10 MG TAB PO SCH ×2 (11:05→21:40)
[2021-10-19] MEDS: METOPROLOL TARTRATE 50 MG TAB PO SCH ×2 (11:05→21:40)
[2021-10-19] MEDS: hydrALAZINE 100 MG TAB PO SCH ×3 (11:06→21:41)
[2021-10-19] MEDS: SPIRONOLACTONE 25 MG TAB PO SCH (11:06)
[2021-10-19] MEDS: HEPARIN 5,000 UNIT/1 ML VIAL SUB-Q SCH ×2 (11:06→21:40)
--- NOTE | 2021-10-19 11:11 | Progress Note ---
Assessment and Plan - Patient Problems (1) Shortness of breath Current Visit: Yes Status: Acute Plan to address problem: Patient has shortness of breath with acute Covid pneumonia, manifested also by a small to moderate sized right pleural effusion. Continue management of acute Covid pneumonia. (2) Left ventricular dysfunction Current Visit: Yes Status: Acute Plan to address problem: Patient has mild left ventricular systolic dysfunction, ejection fraction 40 to 45%. No prior left ventricular function assessment is available at this time for comparison, we will continue conservative medical management. Subjective Date of service: 10/19/21 Interval history: Patient presented with acute Covid infection, shortness of breath, hypoxemia. Chest x-ray shows a small to moderate sized right pleural effusion. Echocardiogram shows mild left ventricular systolic dysfunction with ejection fraction 40 to 45%. Objective Vital Signs Temp Pulse Pulse Pulse Resp Resp BP 10/19/21 11:06 191/78 10/19/21 11:05 191/78 10/19/21 07:57 10/19/21 06:00 60 20 188/80 10/19/21 05:00 59 L 26 H 172/75 10/19/21 04:30 56 L 15 182/84 10/19/21 04:15 61 182/84 10/19/21 04:00 98.2 F 199/96 10/19/21 03:30 189/83 10/19/21 03:00 61 17 177/102 10/19/21 02:30 58 L 26 H 174/87 10/19/21 02:00 60 25 H 174/83 10/19/21 01:30 60 23 174/83 10/19/21 01:00 58 L 23 175/74 10/19/21 00:30 55 L 18 175/74 10/19/21 00:00 98.3 F 53 L 20 175/74 10/18/21 23:30 53 L 22 165/66 10/18/21 23:00 55 L 14 165/66 10/18/21 22:40 56 L 22 171/70 10/18/21 22:00 64 58 L 24 171/70 10/18/21 21:41 61 184/82 10/18/21 21:26 67 16 10/18/21 21:15 10/18/21 21:00 51 L 17 185/81 10/18/21 20:45 52 L 10/18/21 20:00 97.8 F 58 L 24 182/85 10/18/21 19:00 54 L 20 155/69 10/18/21 18:00 60 22 175/84 10/18/21 17:00 61 24 193/83 10/18/21 16:00 54 L 62 30 H 160/72 10/18/21 15:00 54 L 15 175/75 10/18/21 14:00 54 L 29 H 168/85 10/18/21 13:00 58 L 19 185/80 10/18/21 12:56 67 194/91 10/18/21 12:55 61 184/91 10/18/21 12:00 98 F 58 L 65 21 194/91 Pulse Ox 10/19/21 11:06 10/19/21 11:05 10/19/21 07:57 92 10/19/21 06:00 92 10/19/21 05:00 90 10/19/21 04:30 95 10/19/21 04:15 10/19/21 04:00 97 10/19/21 03:30 91 10/19/21 03:00 92 10/19/21 02:30 92 10/19/21 02:00 92 10/19/21 01:30 91 10/19/21 01:00 92 10/19/21 00:30 92 10/19/21 00:00 94 10/18/21 23:30 92 10/18/21 23:00 91 10/18/21 22:40 93 10/18/21 22:00 95 10/18/21 21:41 10/18/21 21:26 10/18/21 21:15 94 10/18/21 21:00 93 10/18/21 20:45 10/18/21 20:00 95 10/18/21 19:00 95 10/18/21 18:00 92 10/18/21 17:00 93 10/18/21 16:00 90 10/18/21 15:00 94 10/18/21 14:00 93 10/18/21 13:00 93 10/18/21 12:56 10/18/21 12:55 10/18/21 12:00 94 - Physical Examination Narrative exam: Full physical exam is deferred due to the patient's acute Covid infection. General: No Apparent Distress - Labs and Meds Cardiac Enzymes 10/19/21 Range/Units 10:29 Lactate Dehydrogenase 199 H (91-180) units/L Comprehensive Metabolic Panel 10/19/21 10/19/21 Range/Units 10:09 10:29 Potassium 4.1 (3.6-5.0) mmol/L Chloride 85.3 L (98-107) mmol/L Carbon Dioxide 26 (22-30) mmol/L BUN 32 H (7-17) mg/dL Creatinine 1.4 H (0.6-1.2) mg/dL Glucose 93 96 (65-100) mg/dL Calcium 9.1 (8.4-10.2) mg/dL
--- NOTE | 2021-10-19 13:56 | Progress Note ---
Assessment and Plan Cultures: Blood culture no growth so far COVID-19 PCR positive A/P: 71-year-old female past medical history COPD, hypertension #Acute hypoxic respiratory failure: Currently on 4 L nasal cannula. Likely secondary to CHF exacerbation #COVID-19 infection: [place] less likely to be the cause of her respiratory failure. Not currently in any treatment. Doing well. #Acute CHF, on diuresis #JEAN: Renally dose antibiotics #Hypothyroidism: would re-evalaute as outpatient. Elevated TSH. Recs: -Agree with no need for COVID-19 treatment at the present time. Her inflammatory markers are normal to nominally elevated. -Complete 5 days Levaquin -Diuresis per primary -Anticoagulation per hospital protocol Thank you for the consult, we will continue to follow. Gabby Hidalgo MD [facility] ([facility] O: [phone] F: [phone] Subjective Date of service: 10/19/21 Interval history: Afebrile, normal white count. On 4 L nasal cannula. Objective - Exam Narrative Exam: Physical exam deferred to reduce risk of transmission of COVID-19. Please refer to primary team's note. - Constitutional Vitals: Vital Signs Temp Pulse Resp BP Pulse Ox 98.2 F 60 20 191/78 94 10/19/21 04:00 10/19/21 06:00 10/19/21 06:00 10/19/21 11:06 10/19/21 13:44 Temperature -Last 24 Hours Temperature 98.2 F Temperature 98.3 F Temperature 97.8 F - Labs CBC & Chem 7: 10/17/21 07:29 10/19/21 10:29 Labs: Abnormal lab results 10/19/21 10/19/21 10/19/21 Range/Units 10:09 10:29 10:29 D-Dimer (0-234) ng/mlDDU Sodium 127 L D (137-145) mmol/L Chloride 85.3 L (98-107) mmol/L BUN 32 H (7-17) mg/dL Creatinine 1.4 H (0.6-1.2) mg/dL Ferritin 293.1 H (10.0-200.0) ng/mL Lactate Dehydrogenase 199 H (91-180) units/L 10/19/21 Range/Units 10:29 D-Dimer 745.76 H (0-234) ng/mlDDU Sodium (137-145) mmol/L Chloride (98-107) mmol/L BUN (7-17) mg/dL Creatinine (0.6-1.2) mg/dL Ferritin (10.0-200.0) ng/mL Lactate Dehydrogenase (91-180) units/L
--- NOTE | 2021-10-19 15:15 | Progress Note ---
Assessment and Plan 71 years old female with history of COPD and hypertension was brought to the emergency room because of progressive shortness of breath for last 1 to 2 days. Patient was found to had O2 sat in the 60s. Patient recently diagnosed with Covid , fully vaccinated no fever , no chest pain , EMS found her with o2 sat in 60s , put her on face mask and her o2 here was 85 , In the emergency room patient WBC was 13.9, BNP [place] [address]. Chest x-ray shows probable mild pulmonary vascular congestion/interstitial edema. Mild/moderate confluent pleural parenchymal opacity in the right lower hemithorax may be related to asymmetric edema, pneumonia or aspiration So going to admit the patient we will put the patient on antibiotic, will IV Lasix will consult in cardiology for evaluation Hospital Course: 10/16/2021: Remains on BIPAP mask. Lower extremity edema and rales noted on exam. Will continue diuresis. ECHO findings noted as well as cardio recs. Pulmonology consulted for assistance with BIPAP. Discussed with patient who would like to remain full code. She requested I not update family about medical status when I asked who I could call. 10/17/2021: improvement clinically. On Nasal cannula 4L satting 94-95% on my encounter. CXR shows improvement in interstitial edeam. Urine output good. Slight inc in Cr but will continue diuresis one more day and can likely drop lasix dose tomorrow. 10/18/2021: Blood pressure elevated overnight and this AM. Increased hydralazine and metoprolol. Added spironalactone. Lasix dropped to 20 mg IV q daily. Patient is COVID positive. continue empiric abx, steroids. Consultation placed to infectious disease. Pending cardiology rec re: NM stress test ordered. Assessment and Plan: #Acute Hypoxic respiratory failure (improving) - etiology likely decompensated heart failure. complicated by COVID 19 Pneumonia - on admission was on BIPAP, abg shows respiratory acidosis. - de-escalated to NC. - will attempt to wean as sats tolerate. - pulmonology consulted. #Sepsis POA - wbc: 13K - CXR shows patchy infiltrate RLL field - COVID pcr sent' - bcx, scx - abx: levaquin #COVID 19 Pneumonia - patchy opacity in RLL field, could represent PNA. - RT PCR sent for COVID - Bcx, scx - currently on levaquin - start decadron 6 mg IV daily. - consultaiton placed to infectious disease #Acute Decompensated heart failure (improving) - concern for decompensated heart failure given lower extremity edema and interstitial - BNP 01120 - CXR shows pulmonary edema - ECHO fdinings as below - cardiology consulted - Lasix 40 mg IV bid. #HFrEF - 40-45% on echo - mild concentric hypertrophey - diuresis as above - on atenolol at home, will change to metoprolol. hold naida due to renal fx. - added spironalactone 25 mg po daily # Acute kidney injury due to vasomotor nephropathy - Cr: 1.3-->1.4 - will trend on bmp - renally adjust meds - hold home naida-i #Essential hypertension - reports being on 4 Anti-HTN meds - resume home hydralazine, increased to 100 tid. hold lisinopril. - will change atenolol to metoprolol 100 mg po bid. - will need medication reconciliation - Labetalol 10 mg IV q4hr prn #Sick euthyroid syndrome - TSH: 5.5 - no indication while treated in hospital - will advise to recheck in 6 weeks as OP. #Advance care planning Disease education conducted, care plan discussed, diagnoses discussed, prognosis discussed, patient is full code, patient acknowledges understanding and agree with care plan, +30 minutes. The high probability of a clinically significant, sudden or life threatening deterioration of the [pulmonary, cardiac] system(s) required my full and direct attention, intervention and personal management. The aggregate critical care time was [60] minutes. This time is in addition to time spent performing reported procedures but includes the following: [x] Data Review and interpretation [x] Patient assessment and monitoring of vital signs [x] Documentation [x] Medication orders and management History Interval history: Resting comfortably no complaints. On supplemental O2. Hospitalist Physical - Physical exam Narrative exam: Physical Exam: VITAL SIGNS: Reviewed. GENERAL: The patient appears normally developed, Vital signs as documented. elderly woman appears stated age. on nasal cannula HEAD: No signs of head trauma. EYES: Pupils are equal. Extraocular motions intact. EARS: Hearing grossly intact. MOUTH: Oropharynx is normal. NECK: No adenopathy, no JVD. CHEST: bilateral rales CARDIAC: Regular rate and rhythm. S1 and S2, without murmurs, gallops, or rubs. VASCULAR: bilateral 1-2+ LE edema. Peripheral pulses normal and equal in all extremities. ABDOMEN: Soft, non tender and non distended. No rebound or guarding, and no masses palpated. Bowel Sounds normal. MUSCULOSKELETAL: Good range of motion of all major joints. Extremities without clubbing, cyanosis or edema. NEUROLOGIC EXAM: Alert and oriented x 4. no focal sensory or strength deficits. PSYCHIATRIC: Mood normal. SKIN: detail exam as documented in skin assessment Subjective Date of service: 10/19/21 Objective - Constitutional Vitals: Vital Signs - 12hr 10/19/21 10/19/21 10/19/21 03:30 04:00 04:15 Temperature 98.2 F Pulse Rate 61 Respiratory Rate Blood Pressure 189/83 199/96 182/84 O2 Sat by Pulse 91 97 Oximetry 10/19/21 10/19/21 10/19/21 04:30 05:00 06:00 Temperature Pulse Rate 56 L 59 L 60 Respiratory 15 26 H 20 Rate Blood Pressure 182/84 172/75 188/80 O2 Sat by Pulse 95 90 92 Oximetry 10/19/21 10/19/21 10/19/21 06:40 07:57 11:05 Temperature Pulse Rate 63 Respiratory 21 Rate Blood Pressure 191/83 191/78 O2 Sat by Pulse 91 92 Oximetry 10/19/21 10/19/21 11:06 13:44 Temperature Pulse Rate Respiratory Rate Blood Pressure 191/78 O2 Sat by Pulse 94 Oximetry - Labs CBC & Chem 7: 10/17/21 07:29 10/19/21 10:29 Labs: Abnormal lab results 10/19/21 10/19/21 10/19/21 Range/Units 10:09 10:29 10:29 D-Dimer (0-234) ng/mlDDU Sodium 127 L D (137-145) mmol/L Chloride 85.3 L (98-107) mmol/L BUN 32 H (7-17) mg/dL Creatinine 1.4 H (0.6-1.2) mg/dL Ferritin 293.1 H (10.0-200.0) ng/mL Lactate Dehydrogenase 199 H (91-180) units/L 10/19/21 Range/Units 10:29 D-Dimer 745.76 H (0-234) ng/mlDDU Sodium (137-145) mmol/L Chloride (98-107) mmol/L BUN (7-17) mg/dL Creatinine (0.6-1.2) mg/dL Ferritin (10.0-200.0) ng/mL Lactate Dehydrogenase (91-180) units/L HEART Score - HEART Score Troponin: Troponin T < 0.010 ng/mL (0.00-0.029) 10/15/21 23:43
[2021-10-19] MEDS: FUROSEMIDE 40 MG/4 ML INJ IV SCH (18:35)
[2021-10-20] MEDS: FUROSEMIDE 40 MG/4 ML INJ IV SCH ×2 (06:18→20:13)
--- NOTE | 2021-10-20 09:52 | Progress Note ---
Assessment and Plan - Patient Problems (1) Shortness of breath Current Visit: Yes Status: Acute Plan to address problem: Patient has shortness of breath with acute Covid pneumonia, manifested also by a small to moderate sized right pleural effusion. Continue management of acute Covid pneumonia. (2) Left ventricular dysfunction Current Visit: Yes Status: Acute Plan to address problem: Patient has mild left ventricular systolic dysfunction, ejection fraction 40 to 45%. No prior left ventricular function assessment is available at this time for comparison, we will continue conservative medical management. Subjective Date of service: 10/20/21 Interval history: Patient presented with acute Covid infection, shortness of breath, hypoxemia. Chest x-ray shows a small to moderate sized right pleural effusion. Echocardiogram shows mild left ventricular systolic dysfunction with ejection fraction 40 to 45%. Objective Vital Signs Temp Pulse Resp BP Pulse Ox 10/20/21 05:17 97.4 F L 59 L 20 128/59 90 10/19/21 23:38 20 94 10/19/21 22:44 97.4 F L 51 L 19 147/66 92 10/19/21 22:00 52 L 100 10/19/21 17:16 97.4 F L 52 L 18 142/61 94 10/19/21 13:44 94 10/19/21 11:06 191/78 10/19/21 11:05 - Physical Examination Narrative exam: Full physical exam is deferred due to the patient's acute Covid infection. General: No Apparent Distress HEENT: Positive: PERRL, Normocephaly, Mucus Membranes Moist Neck: Positive: neck supple, trachea midline Neuro: Positive: Grossly Intact Abdomen: Positive: Unremarkable, Soft Extremities: Absent: edema - Labs and Meds Cardiac Enzymes 10/19/21 Range/Units 10:29 Lactate Dehydrogenase 199 H (91-180) units/L Comprehensive Metabolic Panel 10/19/21 10/19/21 Range/Units 10:09 10:29 Sodium 127 L D (137-145) mmol/L Potassium 4.1 (3.6-5.0) mmol/L Chloride 85.3 L (98-107) mmol/L Carbon Dioxide 26 (22-30) mmol/L BUN 32 H (7-17) mg/dL Creatinine 1.4 H (0.6-1.2) mg/dL Glucose 93 96 (65-100) mg/dL Calcium 9.1 (8.4-10.2) mg/dL
[2021-10-20] MEDS: levoFLOXacin 750 MG TAB PO SCH (10:06)
[2021-10-20] MEDS: hydrALAZINE 100 MG TAB PO SCH ×4 (10:06→20:14)
[2021-10-20] MEDS: METOPROLOL TARTRATE 50 MG TAB PO SCH ×2 (10:06→23:25)
[2021-10-20] MEDS: SPIRONOLACTONE 25 MG TAB PO SCH (10:06)
[2021-10-20] MEDS: FAMOTIDINE 10 MG TAB PO SCH ×2 (10:06→23:26)
[2021-10-20] MEDS: HEPARIN 5,000 UNIT/1 ML VIAL SUB-Q SCH (10:07)
[2021-10-20] MEDS: NIFEdipine XL 90 MG TAB PO SCH ×2 (10:07→23:26)
[2021-10-20] MEDS: ALBUTEROL 8.5 GM MDI INHALATION IH SCH ×2 (10:58→10:59)
[2021-10-20] MEDS ORDERED: ALBUTEROL 8.5 GM MDI INHALATION IH PRN (11:01)
--- NOTE | 2021-10-20 13:24 | Progress Note ---
Assessment and Plan 71 y/o female with acute respiratory failure secondary to volume overload from CHF exacerbation and COVID positive. 10/20/21: Continue BID lasix as long as BP and renal function will tolerate. Wean FiO2. 10/19/21: Changed lasix to 40 IV BID. Send stat chemistry this am and please check tomorrow. ID agrees with holding on COVID therapy. Will continue to follow. 10/18/21: Stable on 3 liters. Continues to diurese. At this point, most likely pulm edema more for respiratory failure than COVID. WIll hold on steroids for now. Does not need Remdesivir. Still stable for transfer but will need to go to COVID floor with remote tele 10/17/21: Stable on 3 liters. Can transfer to floor. No steroids. Will need ambulatory walk test at discharge. 1. Weaned from bipap 2. should be assessed for central sleep apnea as an outpatient given systolic heart failure 3. Agree with no systemic steroids at present 4 Wean oxygen for sats >88% 5. Likely will need ambulatory pulse ox prior to discharge 6. Thank you for the consult, will continue to follow along with you. Subjective Date of service: 10/20/21 Interval history: No acute events. Down to 3 liters. Objective Vital Signs - 12hr 10/20/21 10/20/21 05:17 10:00 Temperature 97.4 F L Pulse Rate 59 L Respiratory 20 Rate Blood Pressure 128/59 O2 Sat by Pulse 90 98 Oximetry Constitutional: no acute distress, asleep Eyes: non-icteric Neck: supple Ascultation: Bilateral: rales (right greater than left) Tactile fremitus: Right: diminished (base) Cardiovascular: regular rate and rhythm CBC and BMP: 10/17/21 07:29 10/19/21 10:29 ABG, PT/INR, D-dimer: ABG ABG pH 7.285 pH Units (7.350-7.450) L 10/16/21 00:04 ABG pCO2 48.3 mm Hg 10/16/21 00:04 ABG pO2 89.9 mm Hg (80.0-90.0) 10/16/21 00:04 ABG O2 Saturation 96.0 % (95.0-99.0) 10/16/21 00:04 PT/INR, D-dimer PT 14.8 Sec. (12.2-14.9) 10/15/21 23:43 INR 1.05 (0.87-1.13) 10/15/21 23:43 D-Dimer 745.76 ng/mlDDU (0-234) H 10/19/21 10:29 Abnormal lab findings: Abnormal Labs 10/15/21 10/15/21 10/15/21 23:43 23:43 23:43 WBC 13.9 H MCV 99 H RDW 15.4 H Lymph % (Auto) 4.6 L [place] % (Auto) 8.3 H Lymph # (Auto) 0.6 L [place] # (Auto) 1.2 H Seg Neutrophils % 86.4 H Seg Neutrophils # 12.0 H D-Dimer ABG pH ABG Base Excess ABG Hemoglobin Oxyhemoglobin Sodium 132 L Chloride 97.7 L Carbon Dioxide 21 L BUN 22 H Creatinine 1.3 H Glucose 151 H Ferritin Lactate Dehydrogenase NT-Pro-B Natriuret Pep 60585 H TSH Coronavirus (PCR) 10/16/21 10/16/21 10/17/21 00:04 12:32 07:29 WBC MCV 99 H RDW Lymph % (Auto) 13.0 L [place] % (Auto) 14.2 H Lymph # (Auto) 0.8 L [place] # (Auto) Seg Neutrophils % 72.3 H Seg Neutrophils # D-Dimer ABG pH 7.285 L ABG Base Excess -4.4 L ABG Hemoglobin 11.8 L Oxyhemoglobin 94.2 L Sodium Chloride Carbon Dioxide BUN Creatinine Glucose Ferritin Lactate Dehydrogenase NT-Pro-B Natriuret Pep TSH Coronavirus (PCR) Positive A 10/17/21 10/17/21 10/19/21 07:29 10:43 10:09 WBC MCV RDW Lymph % (Auto) [place] % (Auto) Lymph # (Auto) [place] # (Auto) Seg Neutrophils % Seg Neutrophils # D-Dimer ABG pH ABG Base Excess ABG Hemoglobin Oxyhemoglobin Sodium 135 L 127 L D Chloride 93.7 L 85.3 L Carbon Dioxide BUN 31 H 32 H Creatinine 1.4 H 1.4 H Glucose Ferritin Lactate Dehydrogenase NT-Pro-B Natriuret Pep TSH 5.970 H Coronavirus (PCR) 10/19/21 10/19/21 10/19/21 10:29 10:29 10:29 WBC MCV RDW Lymph % (Auto) [place] % (Auto) Lymph # (Auto) [place] # (Auto) Seg Neutrophils % Seg Neutrophils # D-Dimer 745.76 H ABG pH ABG Base Excess ABG Hemoglobin Oxyhemoglobin Sodium Chloride Carbon Dioxide BUN Creatinine Glucose Ferritin 293.1 H Lactate Dehydrogenase 199 H NT-Pro-B Natriuret Pep TSH Coronavirus (PCR)
--- NOTE | 2021-10-20 15:56 | Progress Note ---
Assessment and Plan Cultures: Blood culture no growth so far COVID-19 PCR positive A/P: 71-year-old female past medical history COPD, hypertension #Acute hypoxic respiratory failure: Currently on 3 L nasal cannula. Likely secondary to CHF exacerbation #COVID-19 infection: [place] less likely to be the cause of her respiratory failure. Not currently in any treatment. Doing well. #Acute CHF, on diuresis #JEAN: Renally dose antibiotics #Hypothyroidism: would re-evalaute as outpatient. Elevated TSH. Recs: -Agree with no need for COVID-19 treatment at the present time. Her inflammatory markers are normal to nominally elevated. -Complete 5 days Levaquin -Diuresis per primary -Anticoagulation per hospital protocol Thank you for the consult, we will continue to follow. Gabby Hidalgo MD [facility] O: [phone] F: [phone] Subjective Date of service: 10/20/21 Interval history: Afebrile, normal white count. On 3 L nasal cannula. Objective - Exam Narrative Exam: Physical exam deferred to reduce risk of transmission of COVID-19. Please refer to primary team's note. - Constitutional Vitals: Vital Signs Temp Pulse Resp BP Pulse Ox 97.8 F 52 L 18 151/64 94 10/20/21 12:37 10/20/21 12:37 10/20/21 12:37 10/20/21 12:37 10/20/21 12:37 Temperature -Last 24 Hours Temperature 97.8 F Temperature 97.4 F Temperature 97.4 F Temperature 97.4 F - Labs CBC & Chem 7: 10/17/21 07:29 10/19/21 10:29
--- NOTE | 2021-10-20 16:08 | Progress Note ---
Assessment and Plan 71 years old female with history of COPD and hypertension was brought to the emergency room because of progressive shortness of breath for last 1 to 2 days. Patient was found to had O2 sat in the 60s. Patient recently diagnosed with Covid , fully vaccinated no fever , no chest pain , EMS found her with o2 sat in 60s , put her on face mask and her o2 here was 85 , In the emergency room patient WBC was 13.9, BNP was [address]. Chest x-ray shows probable mild pulmonary vascular congestion/interstitial edema. Mild/moderate confluent pleural parenchymal opacity in the right lower hemithorax may be related to asymmetric edema, pneumonia or aspiration So going to admit the patient we will put the patient on antibiotic, will IV Lasix will consult in cardiology for evaluation Hospital Course: 10/16/2021: Remains on BIPAP mask. Lower extremity edema and rales noted on exam. Will continue diuresis. ECHO findings noted as well as cardio recs. Pulmonology consulted for assistance with BIPAP. Discussed with patient who would like to remain full code. She requested I not update family about medical status when I asked who I could call. 10/17/2021: improvement clinically. On Nasal cannula 4L satting 94-95% on my encounter. CXR shows improvement in interstitial edeam. Urine output good. Slight inc in Cr but will continue diuresis one more day and can likely drop lasix dose tomorrow. 10/18/2021: Blood pressure elevated overnight and this AM. Increased hydralazine and metoprolol. Added spironalactone. Lasix dropped to 20 mg IV q daily. Patient is COVID positive. continue empiric abx, steroids. Consultation placed to infectious disease. Pending cardiology rec re: NM stress test ordered. Assessment and Plan: #Acute Hypoxic respiratory failure (improving) - etiology likely decompensated heart failure. complicated by COVID 19 Pneumonia - on admission was on BIPAP, abg shows respiratory acidosis. - de-escalated to NC. - will attempt to wean as sats tolerate. - pulmonology consulted. #Sepsis POA - wbc: 13K - CXR shows patchy infiltrate RLL field - COVID pcr sent' - bcx, scx - abx: levaquin #COVID 19 Pneumonia - patchy opacity in RLL field, could represent PNA. - RT PCR sent for COVID - Bcx, scx - currently on levaquin - start decadron 6 mg IV daily. - consultaiton placed to infectious disease #Acute Decompensated heart failure (improving) - concern for decompensated heart failure given lower extremity edema and interstitial - BNP 58448 - CXR shows pulmonary edema - ECHO fdinings as below - cardiology consulted - Lasix 40 mg IV bid. #HFrEF - 40-45% on echo - mild concentric hypertrophey - diuresis as above - on atenolol at home, will change to metoprolol. hold naida due to renal fx. - added spironalactone 25 mg po daily # Acute kidney injury due to vasomotor nephropathy - Cr: 1.3-->1.4 - will trend on bmp - renally adjust meds - hold home naida-i #Essential hypertension - reports being on 4 Anti-HTN meds - resume home hydralazine, increased to 100 tid. hold lisinopril. - will change atenolol to metoprolol 100 mg po bid. - will need medication reconciliation - Labetalol 10 mg IV q4hr prn #Sick euthyroid syndrome - TSH: 5.5 - no indication while treated in hospital - will advise to recheck in 6 weeks as OP. #Advance care planning Disease education conducted, care plan discussed, diagnoses discussed, prognosis discussed, patient is full code, patient acknowledges understanding and agree with care plan, +30 minutes. The high probability of a clinically significant, sudden or life threatening deterioration of the [pulmonary, cardiac] system(s) required my full and direct attention, intervention and personal management. The aggregate critical care time was [60] minutes. This time is in addition to time spent performing reported procedures but includes the following: [x] Data Review and interpretation [x] Patient assessment and monitoring of vital signs [x] Documentation [x] Medication orders and management History Interval history: Resting comfortably no complaints. On supplemental O2. Hospitalist Physical - Physical exam Narrative exam: Physical Exam: VITAL SIGNS: Reviewed. GENERAL: The patient appears normally developed, Vital signs as documented. elderly woman appears stated age. on nasal cannula HEAD: No signs of head trauma. EYES: Pupils are equal. Extraocular motions intact. EARS: Hearing grossly intact. MOUTH: Oropharynx is normal. NECK: No adenopathy, no JVD. CHEST: bilateral rales CARDIAC: Regular rate and rhythm. S1 and S2, without murmurs, gallops, or rubs. VASCULAR: bilateral 1-2+ LE edema. Peripheral pulses normal and equal in all extremities. ABDOMEN: Soft, non tender and non distended. No rebound or guarding, and no masses palpated. Bowel Sounds normal. MUSCULOSKELETAL: Good range of motion of all major joints. Extremities without clubbing, cyanosis or edema. NEUROLOGIC EXAM: Alert and oriented x 4. no focal sensory or strength deficits. PSYCHIATRIC: Mood normal. SKIN: detail exam as documented in skin assessment Subjective Date of service: 10/20/21 Objective - Constitutional Vitals: Vital Signs - 12hr 10/20/21 10/20/21 10/20/21 05:17 10:00 12:37 Temperature 97.4 F L 97.8 F Pulse Rate 59 L 52 L Respiratory 20 18 Rate Blood Pressure 128/59 151/64 O2 Sat by Pulse 90 98 94 Oximetry - Labs CBC & Chem 7: 10/17/21 07:29 10/19/21 10:29 HEART Score - HEART Score Troponin: Troponin T < 0.010 ng/mL (0.00-0.029) 10/15/21 23:43
[2021-10-21] MEDS: HEPARIN 5,000 UNIT/1 ML VIAL SUB-Q SCH ×3 (06:10→21:43)
[2021-10-21] MEDS: FUROSEMIDE 40 MG/4 ML INJ IV SCH (06:38)
--- NOTE | 2021-10-21 09:56 | Progress Note ---
Assessment and Plan 71 y/o female with acute respiratory failure secondary to volume overload from CHF exacerbation and COVID positive. 10/21/21: Follow up labs. 3 liters maybe her new baseline. Will consider repeat CXR if not able to wean further. PSG as an outpatient. Will need ambulatory pulse oxy prior to discharge. 10/20/21: Continue BID lasix as long as BP and renal function will tolerate. Wean FiO2. 10/19/21: Changed lasix to 40 IV BID. Send stat chemistry this am and please check tomorrow. ID agrees with holding on COVID therapy. Will continue to follow. 10/18/21: Stable on 3 liters. Continues to diurese. At this point, most likely pulm edema more for respiratory failure than COVID. WIll hold on steroids for now. Does not need Remdesivir. Still stable for transfer but will need to go to COVID floor with remote tele 10/17/21: Stable on 3 liters. Can transfer to floor. No steroids. Will need ambulatory walk test at discharge. 1. Weaned from bipap 2. should be assessed for central sleep apnea as an outpatient given systolic heart failure 3. Agree with no systemic steroids at present 4 Wean oxygen for sats >88% 5. Likely will need ambulatory pulse ox prior to discharge 6. Thank you for the consult, will continue to follow along with you. Subjective Date of service: 10/21/21 Interval history: No labs checked since the . BMP ordered this am. Still on BID lasix but per I/O still positive. Currently on 3 liters with sats in the low 90's. Remainder is negative. BP is very elevated Objective Vital Signs - 12hr 10/20/21 10/21/21 10/21/21 23:25 04:00 05:59 Temperature 97.5 F L Pulse Rate 72 48 L Respiratory 16 Rate Blood Pressure 186/78 144/56 O2 Sat by Pulse 93 96 Oximetry 10/21/21 10/21/21 06:37 08:58 Temperature Pulse Rate 58 L Respiratory Rate Blood Pressure O2 Sat by Pulse 93 Oximetry Constitutional: no acute distress, asleep Eyes: non-icteric Neck: supple Ascultation: Bilateral: rales (right greater than left) Tactile fremitus: Right: diminished (base) Cardiovascular: regular rate and rhythm CBC and BMP: 10/17/21 07:29 10/19/21 10:29 ABG, PT/INR, D-dimer: ABG ABG pH 7.285 pH Units (7.350-7.450) L 10/16/21 00:04 ABG pCO2 48.3 mm Hg 10/16/21 00:04 ABG pO2 89.9 mm Hg (80.0-90.0) 10/16/21 00:04 ABG O2 Saturation 96.0 % (95.0-99.0) 10/16/21 00:04 PT/INR, D-dimer PT 14.8 Sec. (12.2-14.9) 10/15/21 23:43 INR 1.05 (0.87-1.13) 10/15/21 23:43 D-Dimer 745.76 ng/mlDDU (0-234) H 10/19/21 10:29 Abnormal lab findings: Abnormal Labs 10/15/21 10/15/21 10/15/21 23:43 23:43 23:43 WBC 13.9 H MCV 99 H RDW 15.4 H Lymph % (Auto) 4.6 L [place] % (Auto) 8.3 H Lymph # (Auto) 0.6 L [place] # (Auto) 1.2 H Seg Neutrophils % 86.4 H Seg Neutrophils # 12.0 H D-Dimer ABG pH ABG Base Excess ABG Hemoglobin Oxyhemoglobin Sodium 132 L Chloride 97.7 L Carbon Dioxide 21 L BUN 22 H Creatinine 1.3 H Glucose 151 H Ferritin Lactate Dehydrogenase NT-Pro-B Natriuret Pep 73378 H TSH Coronavirus (PCR) 10/16/21 10/16/21 10/17/21 00:04 12:32 07:29 WBC MCV 99 H RDW Lymph % (Auto) 13.0 L [place] % (Auto) 14.2 H Lymph # (Auto) 0.8 L [place] # (Auto) Seg Neutrophils % 72.3 H Seg Neutrophils # D-Dimer ABG pH 7.285 L ABG Base Excess -4.4 L ABG Hemoglobin 11.8 L Oxyhemoglobin 94.2 L Sodium Chloride Carbon Dioxide BUN Creatinine Glucose Ferritin Lactate Dehydrogenase NT-Pro-B Natriuret Pep TSH Coronavirus (PCR) Positive A 10/17/21 10/17/21 10/19/21 07:29 10:43 10:09 WBC MCV RDW Lymph % (Auto) [place] % (Auto) Lymph # (Auto) [place] # (Auto) Seg Neutrophils % Seg Neutrophils # D-Dimer ABG pH ABG Base Excess ABG Hemoglobin Oxyhemoglobin Sodium 135 L 127 L D Chloride 93.7 L 85.3 L Carbon Dioxide BUN 31 H 32 H Creatinine 1.4 H 1.4 H Glucose Ferritin Lactate Dehydrogenase NT-Pro-B Natriuret Pep TSH 5.970 H Coronavirus (PCR) 10/19/21 10/19/21 10/19/21 10:29 10:29 10:29 WBC MCV RDW Lymph % (Auto) [place] % (Auto) Lymph # (Auto) [place] # (Auto) Seg Neutrophils % Seg Neutrophils # D-Dimer 745.76 H ABG pH ABG Base Excess ABG Hemoglobin Oxyhemoglobin Sodium Chloride Carbon Dioxide BUN Creatinine Glucose Ferritin 293.1 H Lactate Dehydrogenase 199 H NT-Pro-B Natriuret Pep TSH Coronavirus (PCR)
[2021-10-21 10:42] LABS: Calcium 8.6 mg/dL (8.4-10.2)
--- NOTE | 2021-10-21 10:43 | Progress Note ---
Assessment and Plan - Patient Problems (1) Shortness of breath Current Visit: Yes Status: Acute Plan to address problem: Patient has shortness of breath with acute Covid pneumonia. Chest x-ray also showed a right pleural effusion, and mild interstitial edema. (2) Left ventricular dysfunction Current Visit: Yes Status: Acute Plan to address problem: Patient has mild left ventricular systolic dysfunction, ejection fraction 40 to 45%. Continue diuretic management, repeat chest x-ray is pending for further assessment of interstitial edema and right pleural effusion. Subjective Date of service: 10/21/21 Interval history: Patient is breathing comfortably on room air, no chest pain, shortness of breath has improved. Chest x-ray from several days ago revealed persistent right pleural effusion. A repeat chest x-rays pending. Objective Vital Signs Temp Pulse Resp BP Pulse Ox 10/21/21 08:58 93 10/21/21 06:37 58 L 10/21/21 05:59 97.5 F L 48 L 16 144/56 96 10/21/21 04:00 93 10/20/21 23:25 72 186/78 10/20/21 21:24 97.4 F L 64 16 190/87 94 10/20/21 20:47 93 10/20/21 17:15 97.8 F 57 L 24 178/67 93 10/20/21 16:00 94 10/20/21 12:37 97.8 F 52 L 18 151/64 94 - Physical Examination General: No Apparent Distress HEENT: Positive: PERRL Neck: Positive: neck supple Cardiac: Positive: Reg Rate and Rhythm Lungs: Positive: Decreased Breath Sounds Neuro: Positive: Grossly Intact Abdomen: Positive: Soft Skin: Positive: Clear Extremities: Absent: edema
[2021-10-21] MEDS ORDERED: FUROSEMIDE 40 MG TAB PO SCH (11:00)
--- NOTE | 2021-10-21 11:35 | XRay Report ---
CHEST 1 VIEW 10/21/2021 10:39 AM INDICATION / CLINICAL INFORMATION: pleural effusion. COMPARISON: 10/17/2021 FINDINGS: SUPPORT DEVICES: None. HEART / MEDIASTINUM: No significant abnormality. LUNGS / PLEURA: Small to moderate right pleural effusion, unchanged. No pneumothorax. ADDITIONAL FINDINGS: No significant additional findings. IMPRESSION: 1. Stable right pleural effusion Signer Name: Bob Cardozo MD Signed: 10/21/2021 11:30 AM Workstation Name: [id number]
[2021-10-21] MEDS: hydrALAZINE 100 MG TAB PO SCH ×3 (12:05→21:43)
[2021-10-21] MEDS: POTASSIUM CHLORIDE ER 10 MEQ TAB PO SCH (12:05)
[2021-10-21] MEDS: METOPROLOL TARTRATE 50 MG TAB PO SCH ×2 (12:05→21:43)
[2021-10-21] MEDS: NIFEdipine XL 90 MG TAB PO SCH ×2 (12:05→21:43)
[2021-10-21 12:17] LABS: INR 0.84 (0.87-1.13)
--- NOTE | 2021-10-21 12:17 | Progress Note ---
Assessment and Plan Cultures: Blood culture no growth so far COVID-19 PCR positive A/P: 71-year-old female past medical history COPD, hypertension #Acute hypoxic respiratory failure: Currently on 3 L nasal cannula. Likely secondary to CHF exacerbation #COVID-19 infection: [place] less likely to be the cause of her respiratory failure. Not currently in any treatment. Doing well. #Acute CHF, on diuresis #JEAN: Renally dose antibiotics #Hypothyroidism: would re-evalaute as outpatient. Elevated TSH. Recs: -Agree with no need for COVID-19 treatment at the present time. Her inflammatory markers are normal to nominally elevated. -Complete 5 days Levaquin -Diuresis per primary -Anticoagulation per hospital protocol Thank you for the consult, we will continue to follow. Gabby Hidalgo MD [facility], [place] O: [phone] F: [phone] Subjective Date of service: 10/21/21 Interval history: Afebrile, normal white count. Imaging personally reviewed: CXR: Stable right pleural effusion. Objective - Exam Narrative Exam: Physical exam deferred to reduce risk of transmission of COVID-19. Please refer to primary team's note. - Constitutional Vitals: Vital Signs Temp Pulse Resp BP Pulse Ox 97.4 F L 63 18 173/78 94 10/21/21 11:33 10/21/21 11:33 10/21/21 11:33 10/21/21 11:33 10/21/21 11:33 Temperature -Last 24 Hours Temperature 97.4 F Temperature 97.5 F Temperature 97.4 F Temperature 97.8 F Temperature 97.8 F - Labs CBC & Chem 7: 10/17/21 07:29 10/21/21 10:02 Labs: Abnormal lab results 10/21/21 Range/Units 10:02 Sodium 122 L (137-145) mmol/L Potassium 3.5 L (3.6-5.0) mmol/L Chloride 81.7 L (98-107) mmol/L BUN 37 H (7-17) mg/dL Creatinine 1.6 H (0.6-1.2) mg/dL Glucose 115 H (65-100) mg/dL
[2021-10-21] MEDS: FAMOTIDINE 10 MG TAB PO SCH ×2 (17:56→21:43)
[2021-10-21] MEDS ORDERED: FUROSEMIDE 40 MG/4 ML INJ IV SCH (18:00)
--- NOTE | 2021-10-22 10:23 | Progress Note ---
Assessment and Plan Cultures: Blood culture no growth so far COVID-19 PCR positive A/P: 71-year-old female past medical history COPD, hypertension #Acute hypoxic respiratory failure: Currently on 2 L nasal cannula. Likely secondary to CHF exacerbation #COVID-19 infection: [place] less likely to be the cause of her respiratory failure. Not currently in any treatment. Doing well. #Acute CHF, on diuresis #JEAN: Renally dose antibiotics #Hypothyroidism: would re-evalaute as outpatient. Elevated TSH. Recs: -Agree with no need for COVID-19 treatment at the present time. Her inflammatory markers are normal to nominally elevated. -Completed empiric antibiotics -Diuresis per primary -Anticoagulation per hospital protocol Thank you for the consult, we will sign off. Please call for questions. Gabby Hidalgo MD [facility] ([facility] O: [phone] F: [phone] Subjective Date of service: 10/22/21 Interval history: Afebrile, normal white count. No acute change. On 2 L nasal cannula. Objective - Exam Narrative Exam: Physical exam deferred to reduce risk of transmission of COVID-19. Please refer to primary team's note. - Constitutional Vitals: Vital Signs Temp Pulse Resp BP Pulse Ox 97.3 F L 59 L 18 135/66 87 10/22/21 04:12 10/22/21 04:12 10/22/21 04:12 10/22/21 04:12 10/22/21 04:12 Temperature -Last 24 Hours Temperature 97.3 F Temperature 98.8 F Temperature 98.0 F Temperature 97.4 F - Labs CBC & Chem 7: 10/17/21 07:29 10/21/21 10:02 Labs: Abnormal lab results 10/21/21 10/21/21 Range/Units 10:02 11:39 INR 0.84 L (0.87-1.13) Sodium 122 L (137-145) mmol/L Potassium 3.5 L (3.6-5.0) mmol/L Chloride 81.7 L (98-107) mmol/L BUN 37 H (7-17) mg/dL Creatinine 1.6 H (0.6-1.2) mg/dL Glucose 115 H (65-100) mg/dL
[2021-10-22] MEDS: METOPROLOL TARTRATE 50 MG TAB PO SCH (10:36)
[2021-10-22] MEDS: HEPARIN 5,000 UNIT/1 ML VIAL SUB-Q SCH (10:37)
[2021-10-22] MEDS: NIFEdipine XL 90 MG TAB PO SCH (10:37)
[2021-10-22] MEDS: POTASSIUM CHLORIDE ER 10 MEQ TAB PO SCH (10:37)
[2021-10-22] MEDS: FAMOTIDINE 10 MG TAB PO SCH (10:37)
--- NOTE | 2021-10-22 10:44 | Procedure Note ---
Date of procedure: 10/22/21 Pre-op diagnosis: R pleural effusion Post-op diagnosis: same Procedure: US guided R thoracentesis Findings: See radiology report Anesthesia: local Surgeon: MALCOLM GAYTAN Estimated blood loss: none Pathology: list (per primary team orders) Specimen disposition: to lab Condition: stable Disposition: no change
[2021-10-22] MEDS: hydrALAZINE 100 MG TAB PO SCH (10:57)
--- NOTE | 2021-10-22 12:11 | Ultrasound Report ---
Ultrasound-guided thoracentesis HISTORY: right pleural effusion. COMPARISON: Chest x-ray from yesterday PROCEDURE: The risks (including but not limited to bleeding, infection, and pneumothorax) and benefi ts were explained to the patient and informed consent was obtained. A time out procedure was perform ed. Ultrasound was used to evaluate the small right pleural effusion and locate the optimal site for need le entry. Once the skin was marked, the procedure site was prepped and draped in the usual sterile f ashion and lidocaine was used for local anesthesia. A skin agnes was made and a 6-Serbian thoracentesi s catheter was placed. The patient was monitored closely throughout the procedure, and a total of 24 0 mL of thin yellow fluid was aspirated. Samples were sent to the lab for further evaluation per the primary clinicians orders. The patient tolerated the procedure well with no complications. A post-procedure chest x-ray was imm ediately ordered. IMPRESSION: Successful thoracentesis as above with a total of 240 mL of thin yellow fluid aspirated. Signer Name: Sudeep Lowe MD Signed: 10/22/2021 12:06 PM Workstation Name: [id number]
[2021-10-22 13:46] VITALS: BP 138/57
--- NOTE | 2021-10-22 14:00 | Progress Note ---
Assessment and Plan - Patient Problems (1) Shortness of breath Current Visit: Yes Status: Acute Plan to address problem: Patient has shortness of breath with acute Covid pneumonia. Chest x-ray also showed a right pleural effusion, now status post thoracentesis. (2) Left ventricular dysfunction Current Visit: Yes Status: Acute Plan to address problem: Patient has mild left ventricular systolic dysfunction, ejection fraction 40 to 45%. Cardiac status is stable. Subjective Date of service: 10/22/21 Interval history: Patient's chest x-ray showed a persistence of a right pleural effusion, and she underwent thoracentesis today. Lung tejeda are clear with no interstitial edema. Objective Vital Signs Temp Pulse Resp BP Pulse Ox 10/22/21 13:24 97.0 F L 48 L 18 138/57 95 10/22/21 04:12 97.3 F L 59 L 18 135/66 87 10/22/21 01:59 96 10/21/21 21:43 60 160/66 10/21/21 21:13 98.8 F 59 L 18 160/66 95 10/21/21 20:52 95 10/21/21 16:03 98.0 F 56 L 18 150/73 94 - Physical Examination General: No Apparent Distress HEENT: Positive: PERRL Neck: Positive: neck supple Cardiac: Positive: Reg Rate and Rhythm Lungs: Positive: Decreased Breath Sounds Neuro: Positive: Grossly Intact Abdomen: Positive: Soft Skin: Positive: Clear Extremities: Absent: edema
--- NOTE | 2021-10-22 14:05 | Discharge Summary ---
Providers - Providers Date of Admission: 10/16/21 03:40 Date of discharge: 10/22/21 Attending physician: FAHAD VARGAS 10/16/21 03:40 Consult to Physician [CONS] Routine Comment: Consulting Provider: RYDER CAMACHO Physician Instructions: Reason For Exam: chf 10/16/21 12:34 Consult to Physician [CONS] Routine Comment: Consulting Provider: RADHA CALLAWAY Physician Instructions: Reason For Exam: pulmonary edema/PNA 10/18/21 09:57 Consult to Physician [CONS] Routine Comment: Consulting Provider: FAYE GUERRERO Physician Instructions: Reason For Exam: covid pneumonia 10/21/21 09:21 Physical Therapy Evaluation and Treat [CONS] Routine Comment: Reason For Exam: Debility Primary care physician: PLUMBING MECH[employer]IC Hospitalization Condition: Fair Hospital course: 71 years old female with history of COPD and hypertension was brought to the emergency room because of progressive shortness of breath for last 1 to 2 days. Patient was found to had O2 sat in the 60s. Patient recently diagnosed with Covid , fully vaccinated no fever , no chest pain , EMS found her with o2 sat in 60s , put her on face mask and her o2 here was 85 , In the emergency room patient WBC was 13.9, BNP was 59781. Chest x-ray shows probable mild pulmonary vascular congestion/interstitial edema. Mild/moderate confluent pleural parenchymal opacity in the right lower hemithorax may be related to asymmetric edema, pneumonia or aspiration So going to admit the patient we will put the patient on antibiotic, will IV Las ix will consult in cardiology for evaluation Hospital Course: 10/16/2021: Remains on BIPAP mask. Lower extremity edema and rales noted on exam. Will continue diuresis. ECHO findings noted as well as cardio recs. Pulmonology consulted for assistance with BIPAP. Discussed with patient who would like to remain full code. She requested I not update family about medical status when I asked who I could call. 10/17/2021: improvement clinically. On Nasal cannula 4L satting 94-95% on my encounter. CXR shows improvement in interstitial edeam. Urine output good. Slight inc in Cr but will continue diuresis one more day and can likely drop lasix dose tomorrow. 10/18/2021: Blood pressure elevated overnight and this AM. Increased hydralazine and metoprolol. Added spironalactone. Lasix dropped to 20 mg IV q daily. Patient is COVID positive. continue empiric abx, steroids. Consultation placed to infectious disease. Pending cardiology rec re: NM stress test ordered. 10/22/2021 Patient on 2 L nasal cannula oxygen Otherwise doing well Sitting in the bed and talking well Patient has a concentrator and oxygen cylinder in the room Patient being discharged on 2 L of nasal cannula oxygen Assessment and Plan: #Acute Hypoxic respiratory failure (improving) - etiology likely decompensated heart failure. complicated by COVID 19 Pneumonia - on admission was on BIPAP, abg shows respiratory acidosis. - de-escalated to NC. - will attempt to wean as sats tolerate. - pulmonology consulted. Patient being discharged on 2 L nasal cannula oxygen with oxygen cylinder and concentrator #Sepsis POA - wbc: 13K - CXR shows patchy infiltrate RLL field - COVID pcr sent' - bcx, scx - abx: levaquin Resolved #COVID 19 Pneumonia - patchy opacity in RLL field, could represent PNA. - RT PCR sent for COVID - Bcx, scx - currently on levaquin - start decadron 6 mg IV daily. - consultaiton placed to infectious disease Off antibiotics and Decadron #Acute Decompensated heart failure (improving) - concern for decompensated heart failure given lower extremity edema and interstitial - BNP 29702 - CXR shows pulmonary clear pulmonary cerebral relaxers Rx great Rx - ECHO fdinings as below - cardiology consulted -Lasix 40 mg twice a day #HFrEF - 40-45% on echo - mild concentric hypertrophey - diuresis as above - on atenolol at home, will change to metoprolol. hold naida due to renal fx. - added spironalactone 25 mg po daily # Acute kidney injury due to vasomotor nephropathy - Cr: 1.3-->1.4 - will trend on bmp - renally adjust meds - hold home naida-i #Essential hypertension - reports being on 4 Anti-HTN meds - resume home hydralazine, increased to 100 tid. hold lisinopril. - will change atenolol to metoprolol 100 mg po bid. - will need medication reconciliation - Labetalol 10 mg IV q4hr prn #Sick euthyroid syndrome - TSH: 5.5 - no indication while treated in hospital - will advise to recheck in 6 weeks as OP. #Advance care planning Disease education conducted, care plan discussed, diagnoses discussed, prognosis discussed, patient is full code, patient acknowledges understanding and agree with care plan, +30 minutes. [facility] with no reports ask in the emergency room is 97.4 this is going to start adjusted in regards, radiograph and his pupils round (3 from Disposition: 01 HOME / SELF CARE / HOMELESS Final Discharge Diagnosis (Prints w/discharge instructions): Acute hypoxic respiratory failure. Sepsis. COVID-19 pneumonia. Congestive heart failure with echo ejection fraction of 40 to 45% Time spent for discharge: 35 minutes - Discharge Diagnoses (1) Acute congestive heart failure Status: Acute (2) Acute respiratory failure Status: Acute (3) CHF (congestive heart failure) Status: Acute (4) COPD (chronic obstructive pulmonary disease) Status: Acute (5) DVT prophylaxis Status: Acute (6) Hypertension Status: Acute (7) Left ventricular dysfunction Status: Acute (8) Pneumonia Status: Acute Core Measure Documentation - Palliative Care Palliative Care/ Comfort Measures: Not Applicable - Core Measures Any of the following diagnoses?: none Exam - Constitutional Vitals: Temp Pulse Resp BP Pulse Ox 97.0 F L 48 L 18 138/57 95 10/22/21 13:24 10/22/21 13:24 10/22/21 13:24 10/22/21 13:24 10/22/21 13:24 General appearance: Present: no acute distress, well-nourished - EENT Eyes: Present: PERRL ENT: hearing intact, clear oral mucosa - Neck Neck: Present: supple, normal ROM - Respiratory Respiratory effort: normal Respiratory: bilateral: CTA - Cardiovascular Heart rate: 78 Rhythm: regular Heart Sounds: Present: S1 & S2. Absent: rub, click - Extremities Extremities: no ischemia, pulses intact, pulses symmetrical, No edema Peripheral Pulses: within normal limits - Abdominal General gastrointestinal: Present: soft, non-tender, non-distended, normal bowel sounds Female genitourinary: Present: normal - Integumentary Integumentary: Present: clear, warm, dry - Musculoskeletal Musculoskeletal: gait normal, strength equal bilaterally - Psychiatric Psychiatric: appropriate mood/affect, intact judgment & insight - Neurologic Neurologic: CNII-XII intact, moves all extremities Plan Activity: no restrictions Diet: low fat, low cholesterol, low salt Follow up with: WARREN CORREA MD [Primary Care Provider] - 7 Days AMISHA HAIDER MD [Staff Physician] - 7 Days Prescriptions: Hydralazine HCl 50 mg PO BID #60 Famotidine [Pepcid] 10 mg PO BID #60 tablet NIFEdipine XL [Procardia Xl] 90 mg PO BID #60 tablet Albuterol Sulfate [Proventil Hfa] 2 puff IH Q4H PRN #1 PRN Reason: Shortness Of Breath atenoloL [Tenormin] 50 mg PO BID #60 lisinopriL [Zestril TAB] 40 mg PO QDAY #30
--- NOTE | 2021-10-22 14:56 | XRay Report ---
CHEST 1 VIEW 10/22/2021 12:24 PM INDICATION / CLINICAL INFORMATION: post thoracentesis. COMPARISON: October 21, 2021 FINDINGS: SUPPORT DEVICES: None. HEART / MEDIASTINUM: No significant abnormality. LUNGS / PLEURA: Improved right pleural effusion. No focal consolidation. No pneumothorax. ADDITIONAL FINDINGS: No significant additional findings. IMPRESSION: 1. Improved right pleural effusion. No pneumothorax. Signer Name: Qasim Dubois DO Signed: 10/22/2021 2:52 PM Workstation Name: [id number]
== END 2021-10-22 16:16 | disposition home health service (06) | DRG 871 ==
LOC: ED 23:28 → IMCU 10-16 03:40 → 3A 10-19 06:54
PROVIDERS: ADMIT Hospitalist; ATTEND Internal Medicine
PROC: 5A09357 Assistance with Respiratory Ventilation, Less than 24 Consecutive Hours, Continuous Positive Airway Pressure (ICD-10-PCS; 2021-10-15)
PROC: 4A033R1 Measurement of Arterial Saturation, Peripheral, Percutaneous Approach (ICD-10-PCS; 2021-10-16)
PROC: 0W993ZZ Drainage of Right Pleural Cavity, Percutaneous Approach (ICD-10-PCS; 2021-10-21)
PROC: 0W993ZZ Drainage of Right Pleural Cavity, Percutaneous Approach (ICD-10-PCS; principal; 2021-10-22)
DX: A41.9 Sepsis, unspecified organism (principal); U07.1 COVID-19; J96.01 Acute respiratory failure with hypoxia; I50.23 Acute on chronic systolic (congestive) heart failure; N17.0 Acute kidney failure with tubular necrosis; J12.82 Pneumonia due to coronavirus disease 2019; J44.0 Chronic obstructive pulmonary disease with (acute) lower respiratory infection; I11.0 Hypertensive heart disease with heart failure; E03.9 Hypothyroidism, unspecified
CPT/HCPCS: 32555; 36415; 71045; 80048; 80053; 81001; 82728; 82803; 82947; 83615; 83690; 83880; 84145; 84443; 84484; 85025; 85379; 85610; 86140; 93005; 93010; 93306; 94640; 94644; 94760; 99406; G0378; J3490; C8929; J0360; J1100; J1644; J1940; U0003

== ENCOUNTER 2022-01-06 10:43 | Outpatient (CLI) | payer MEDICARE ==
[2022-01-06 11:31] LABS: Hematocrit 34.5 % (30.3-42.9); Hemoglobin 11.4 gm/dl (10.1-14.3); Mean Corpuscular HGB Conc 33 % (30-34); Mean Corpuscular Volume 97 fl (79-97); Platelet Count 263 K/mm3 (140-440); Red Blood Count 3.54 M/mm3 (3.65-5.03); Red Cell Distribution Width 13.6 % (13.2-15.2)
[2022-01-06 11:51] LABS: Alanine Aminotransferase 9 units/L (7-56); Albumin 3.8 g/dL (3.9-5); BUN/Creatinine Ratio 21; Blood Urea Nitrogen 38 mg/dL (7-17); Calcium 9.4 mg/dL (8.4-10.2); Chol/HDL Ratio 4.29 %; HDL Cholesterol 34 mg/dL (40-59); Hemolysis Index 2; LDL Cholesterol,Direct 90 mg/dL (50-130)
[2022-01-06 12:03] LABS: ABG Base Excess -4.4 mmol/L (-2.0-3.0); ABG HCO3 19.5 mmol/L (20.0-26.0); ABG Methemoglobin 0.5 % (0.0-1.5); ABG Oxygen Saturation 94.5 % (95.0-99.0); ABG PCO2 31.6 mm Hg; ABG PH 7.408 pH Units (7.350-7.450); ABG PO2 65.3 mm Hg (80.0-90.0)
--- NOTE | 2022-01-06 15:27 | XRay Report ---
Chest 2 views INDICATION: Chest pain IMPRESSION: Mild cardiomegaly with small right pleural effusion unchanged from 10/22/2021. Signer Name: Dean Mcfarland MD Signed: 01/06/2022 3:23 PM Workstation Name: [email or web address]
== END 2022-01-06 10:44 | disposition home or self-care (01) ==
LOC: XRAY 10:43
PROVIDERS: ATTEND Internal Medicine
DX: J44.9 Chronic obstructive pulmonary disease, unspecified (principal); J90 Pleural effusion, not elsewhere classified; J12.82 Pneumonia due to coronavirus disease 2019; I11.0 Hypertensive heart disease with heart failure; I50.9 Heart failure, unspecified; Z86.16 Personal history of COVID-19; Z87.09 Personal history of other diseases of the respiratory system
CPT/HCPCS: 36415; 36600; 71046; 80053; 80061; 82550; 82728; 82803; 83615; 84436; 84443; 84484; 85027; 85379; 86140

== ENCOUNTER 2022-02-01 10:20 | Outpatient (CLI) | payer MEDICARE ==
--- NOTE | 2022-02-01 12:20 | Nuclear Medicine Report ---
NUCLEAR MEDICINE PERFUSION LUNG SCAN INDICATION / CLINICAL INFORMATION: R79.1 ELEVATED D-DIMER. TECHNIQUE: 5.5 mCi of Tc-99m MAA were given by IV. COMPARISON: Chest radiograph dated today. FINDINGS: PERFUSION: No significant perfusion defects. ADDITIONAL FINDINGS: None. IMPRESSION: 1. Low probability for pulmonary embolism. Signer Name: Fabio Johnson MD Signed: 02/01/2022 12:15 PM Workstation Name: [id number]
--- NOTE | 2022-02-01 13:34 | XRay Report ---
CHEST 2 VIEWS INDICATION / CLINICAL INFORMATION: R79.1. COMPARISON: 01/06/2022 FINDINGS: SUPPORT DEVICES: None. HEART / MEDIASTINUM: Unchanged LUNGS / PLEURA: There is blunting of the right costophrenic angle characteristic of small amount of p leural fluid or pleural thickening. No pneumothorax. ADDITIONAL FINDINGS: No significant additional findings. IMPRESSION: 1. No significant change. Signer Name: Jay Jay Ordoñez MD Signed: 02/01/2022 1:30 PM Workstation Name: [email or web address]
== END 2022-02-01 10:21 | disposition home or self-care (01) ==
LOC: NM 10:20
PROVIDERS: ATTEND Internal Medicine
DX: R79.1 Abnormal coagulation profile (principal)
CPT/HCPCS: 71046; 78580; A9540